=== PATIENT | male | born 1940 | race Caucasian/White ===

== ENCOUNTER → 2021-05-03 15:26 | Outpatient (CLI) | payer MEDICARE, OTHER, SELFPAY ==
[2021-05-03 17:03] LABS: Bacteria 0 SEEN /hpf (None Seen); Mucous, Urine 0 SEEN /hpf (<or=2+); Red Blood Cells-Urine 0 SEEN /hpf (0-5); Squamous Epithelial Cells - UA 0 SEEN /hpf (0-5); White Blood Cells 0 SEEN /hpf (0-5)
[2021-05-03 17:28] LABS: Color, Urine Straw (Yellow); Glucose, Dipstick Normal (Normal); Ketone-Dipstick Negative (Negative); Leukocyte Esterase-Dipstick Negative /ul (Negative); Nitrite-Dipstick Negative (Negative); Occult Blood-Urine 10 /ul (Negative); Protein-Dipstick Negative (Negative); Urine Bilirubin Dipstick Negative (Negative); Urine Clarity Clear (Clear); Urine Urobilinogen Normal (Normal)
[2021-05-03 18:13] LABS: PSA,Total - Annual Screen 5.32 ng/mL (0.00-4.00)
== END ==
PROVIDERS: PCP Family Medicine; Referring Provider Urology; Visit Provider Urology
DX: R31.29 Other microscopic hematuria (principal); Z12.5 Encounter for screening for malignant neoplasm of prostate
CPT/HCPCS: 36415; 81001; 84153; G0103

== ENCOUNTER → 2022-05-30 | Outpatient (CLI) | payer MEDICARE, OTHER, SELFPAY | END | disposition home or self-care (01) | LOC: LAB 09:43 | PROVIDERS: PCP Family Medicine; Visit Provider Registered Nurse | DX: Z12.5 Encounter for screening for malignant neoplasm of prostate (principal) | CPT/HCPCS: 36415; 84153; G0103 ==

== ENCOUNTER → 2023-06-12 | Outpatient (CLI) | payer MEDICARE, OTHER, SELFPAY ==
--- OUTSIDE RECORDS SUMMARY | 2023-06-12 08:58 | XMS RPT_ITS | CCD ---
Author Name Unknown Address [address] [place] [address] Organization [facility] Care Team Providers Care Display Fabricator Name Role Phone Sheri Kaur MD Primary Care Provider SHERI KAUR Primary Care Unavailable SAMANTHA TIM Referring Unavailable SHERI KAUR Primary Care Unavailable SAMANTHA TIM Attending Unavailable SHERI KAUR Primary Care Unavailable Allergies Allergy Classification Reported Allergen(s) Allergy Type Date of Onset Reaction(s) Facility (7 sources) Amoxicillin / Clavulanate; Translations: [AMOXICILLIN-POT CLAVULANATE] Drug Allergy 7 [facility] (7 sources) Sulfonamides (Antibiotic); Translations: [SULFA (SULFONAMIDE ANTIBIOTICS)] Propensity to adverse reactions 6 [facility] Work Phone: Medications Current Medications Medication Drug Class(es) Dates Sig (Normalized) Sig (Original) acetaminophen 325 mg / oxyCODONE hydrochloride 5 mg oral tablet (1 source) Opioid Agonist Start: 12-28-2021 End: 01-02-2022 take 1 tablet by mouth every six hours as needed oxyCODONE-acetamin ophen (PERCOCET) 5-325 mg tablet Indications: Unilateral inguinal hernia without obstruction or gangrene, recurrence not specified Take 1 tablet by mouth every 6 hours as needed for up to 5 days. 20 tablet 0 12/28/2021 01/02/2022 Active Completed/Discontinued Medications Medication Drug Class(es) Dates Sig (Normalized) Sig (Original) erythromycin base (ERYTHROMYCIN OPHTHALMIC) (6 sources) erythromycin bas e (ERYTHROMYCIN OPHTHALMIC) Use in eyes. 0 Active Problems Active Problems Problem Classification Problem Date Documented Da te Episodic/Chronic Abdominal hernia (3 sources) Inguinal hernia; Translations: [Unilateral inguinal hernia, without obstruction or gangrene, not specified as recurrent] Episodic Disorders of lipid metabolism (1 source) Hyperlipidemia, unspecified; Translations: [Dyslipidemia, goal LDL below 100] Onset: 05-18-2023 Chronic Immunizations and screening for infectious disease (1 source) Suspected disease caused by 2019-nCoV; Translations: [Suspected COVID-19 virus infection] Episodic Other aftercare (1 source) Follow-up status; Translations: [Encounter for other specified aftercare] Episodic Other nervous system disorders (6 sources) Neuropathy; Translations: [Polyneuropathy, unspecified] Onset: 07-26-2018 07-26-2018 Chronic Residual codes; unclassified (1 source) Contact with and (suspected) exposure to potentially hazardous body fluids; Translations: [Contact with potentially hazardous body fluids] Onset: 05-08-2023 Episodic Past or Other Problems Problem Classification Problem Date Documented Da te Episodic/Chronic Allergic reactions (6 sources) Solar degeneration; Translations: [Other skin changes due to chronic exposure to nonionizing radiation] Onset: 12-05-2011 12-05-2011 Episodic Other and unspecified benign neoplasm (6 sources) Senile angioma; Translations: [Hemangioma of skin and subcutaneous tissue] Onset: 12-05-2011 12-05-2011 Episodic Results Test Name Value Interpretation Reference Range Facil ity Vital Signs Date Time Vital Sign Value Performing Clinician Gallo giraldo 01-05-2022 13:52-0400 Body height 182.9 cm Elio Cunningham MD Work Phone: [facility] 01-05-2022 13:52-0400 Body temperature 97.9 [degF] Elio Cunningham MD Work Phone: [facility] 01-05-2022 13:52-0400 Body weight 70.31 kg Elio Cunningham MD Work Phone: [facility] 01-05-2022 13:52-0400 Diastolic blood pressure 68 mm[Hg] Elio Cunningham MD Work Phone: [facility] 01-05-2022 13:52-0400 Heart rate 65 /min Elio Cunningham MD Work Phone: [facility] 01-05-2022 13:52-0400 SaO2% (BldA) [Mass fraction] 100 % Elio Cunningham MD Work Phone: [facility] 01-05-2022 13:52-0400 Systolic blood pressure 136 mm[Hg] Elio Cunningham MD Work Phone: [facility] 12-28-2021 14:00-0400 Diastolic blood pressure 72 mm[Hg] Elio Cunningham MD Work Phone: [facility] 12-28-2021 14:00-0400 Heart rate 46 /min Elio Cunningham MD Work Phone: [facility] 12-28-2021 14:00-0400 Respiratory rate 14 /min Elio Cunningham MD Work Phone: [facility] 12-28-2021 14:00-0400 SaO2% (BldA) [Mass fraction] 99 % Elio Cunningham MD Work Phone: [facility] 12-28-2021 14:00-0400 Systolic blood pressure 155 mm[Hg] Elio Cunningham MD Work Phone: [facility] 12-28-2021 13:10-0400 Body temperature 96.8 [degF] Elio Cunningham MD Work Phone: [facility] 12-28-2021 10:19-0400 Body height 182.9 cm Elio Cunningham MD Work Phone: [facility] 12-28-2021 10:19-0400 Body weight 71.67 kg Elio Cunningham MD Work Phone: [facility] 12-13-2021 18:02-0400 Body temperature 98.8 [degF] Natalio Gee FRY COOK.LEADERSHIP DEVELOPMENT MANAGER Work Phone: [facility] 12-13-2021 18:02-0400 Body weight 71.85 kg Natalio Gee FRY COOK.LEADERSHIP DEVELOPMENT MANAGER Work Phone: [facility] 12-13-2021 18:02-0400 Diastolic blood pressure 72 mm[Hg] Natalio Gee FRY COOK.LEADERSHIP DEVELOPMENT MANAGER Work Phone: [facility] 12-13-2021 18:02-0400 Heart rate 68 /min Natalio Gee FRY COOK.LEADERSHIP DEVELOPMENT MANAGER Work Phone: [facility] 12-13-2021 18:02-0400 Respiratory rate 16 /min Natalio Gee FRY COOK.LEADERSHIP DEVELOPMENT MANAGER Work Phone: [facility] 12-13-2021 18:02-0400 SaO2% (BldA) [Mass fraction] 98 % Natalio Gee FRY COOK.LEADERSHIP DEVELOPMENT MANAGER Work Phone: [facility] 12-13-2021 18:02-0400 Systolic blood pressure 136 mm[Hg] Natalio Gee FRY COOK.LEADERSHIP DEVELOPMENT MANAGER Work Phone: [facility] 12-12-2021 13:42-0400 Body height 182.9 cm Elio Cunningham MD Work Phone: [facility] 12-12-2021 13:42-0400 Body temperature 98.91 [degF] Elio Cunningham MD Work Phone: [facility] 12-12-2021 13:42-0400 Body weight 71.67 kg Elio Cunningham MD Work Phone: [facility] 12-12-2021 13:42-0400 Diastolic blood pressure 68 mm[Hg] Elio Cunningham MD Work Phone: [facility] 12-12-2021 13:42-0400 Heart rate 85 /min Elio Cunningham MD Work Phone: [facility] 12-12-2021 13:42-0400 SaO2% (BldA) [Mass fraction] 99 % Elio Cunningham MD Work Phone: [facility] 12-12-2021 13:42-0400 Systolic blood pressure 142 mm[Hg] Elio Cunningham MD Work Phone: [facility] 11-29-2021 08:03-0400 Body temperature 97 [degF] Manny Schwartz FRY COOK.LEADERSHIP DEVELOPMENT MANAGER Work Phone: [facility] 11-29-2021 08:03-0400 Body weight 70.76 kg Manny Schwartz APRN.LEADERSHIP DEVELOPMENT MANAGER Work Phone: [facility] 11-29-2021 08:03-0400 Diastolic blood pressure 72 mm[Hg] Manny Schwartz FRY COOK.LEADERSHIP DEVELOPMENT MANAGER Work Phone: [facility] 11-29-2021 08:03-0400 Heart rate 60 /min Manny Schwartz FRY COOK.LEADERSHIP DEVELOPMENT MANAGER Work Phone: [facility] 11-29-2021 08:03-0400 Respiratory rate 14 /min Manny Schwartz FRY COOK.LEADERSHIP DEVELOPMENT MANAGER Work Phone: [facility] 11-29-2021 08:03-0400 Systolic blood pressure 118 mm[Hg] Manny Schwartz APRN.LEADERSHIP DEVELOPMENT MANAGER Work Phone: [facility] Encounters Encounter Date Encounter Type Care Provider Facility Start: 05-18-2023 End: 05-19-2023 ambulatory [facility] Facility:[facility] Start: 05-16-2023 End: 05-17-2023 [facility] Facility:[facility] Start: 05-16-2023 Patient encounter procedure SAMANTHA WOODNj [facility] Start: 05-08-2023 End: 05-09-2023 ambulatory [facility] Facility:[facility] Start: 03-11-2022 End: 03-11-2022 ambulatory [facility] Nurse Mayela Work Phone: [facility] [place] Procedures Date Procedure Procedure Detail Performing Clinician Start: 03-11-2022 [facility] COVI D-19 BIVALENT BOOSTER VACCINE, AGE 12+ YR Franky Cid DO Work Phone: Start: 03-11-2022 INFLUENZA SEASONAL QUADRIVALENT HIGH DOSE AGE 65+ Franky Cid DO Work Phone: Start: 11-29-2021 Adult depression scr eening assessment Manny Schwartz APRN.LEADERSHIP DEVELOPMENT MANAGER Work Phone: Plan of Treatment Date Care Activity Detail Author Start: 10-05-2025 Urine microalbumin profile DTAP,TDAP,TD (2 - Td or Tdap) [facility] Start: 01-12-2023 DIABETES SCREEN DIABETES SCREEN [facility] Start: 11-29-2022 Adult depression screening assessment DEPRESSION SCREENING [facility] Start: 01-19-2022 Influenza vaccination INFLUENZA (#1) [facility] Start: 05-21-2021 ADVANCE DIRECTIVE DISCUSSION ADVANCE DIRECTIVE DISCUSSION [facility] Start: 05-21-2021 DEPRESSION ASSESSMENT DEPRESSION ASSESSMENT [facility] SARS-CoV-2 (COVID-19 ) RNA [Presence] in Respiratory specimen by JAMES with probe detection 2019 CORONAVIRUS Microbiology Routine Suspected COVID-19 virus infection Ordered: 12/13/2021 [facility] Work Phone: Immunizations Immunization Date Immunization Notes Care Provider [facility] 03-11-2022 COVID-19 booster vaccine, age 12+ yr, bivalent (PFIZER-BIONTECH) Immunization [place] Work Phone: [facility] Work Phone: 03-11-2022 influenza, high-dose , quadrivalent vaccine (FLUZONE HIGH DOSE QUADRIVALENT) Immunization [place] Work Phone: [facility] 09-02-2021 COVID-19 vaccine, ag e 12+ yr (PFIZER-BIONTECH - DIAZ TOP) Manny Efren FRY COOK.LEADERSHIP DEVELOPMENT MANAGER Work Phone: [facility] 03-03-2021 COVID-19 vaccine, ag e 12+ yr (PFIZER-BIONTECH - PURPLE TOP) Manny Efren FRY COOK.LEADERSHIP DEVELOPMENT MANAGER Work Phone: [facility] 03-03-2021 influenza, high dose seasonal, preservative-free Manny Efren FRY COOK.LEADERSHIP DEVELOPMENT MANAGER Work Phone: [facility] 07-15-2020 COVID-19 vaccine, ag e 12+ yr (PFIZER-BIONTECH - PURPLE TOP) Manny Efren FRY COOK.LEADERSHIP DEVELOPMENT MANAGER Work Phone: [facility] 06-25-2020 COVID-19 vaccine, ag e 12+ yr (PFIZER-BIONTECH - PURPLE TOP) Manny Efren FRY COOK.LEADERSHIP DEVELOPMENT MANAGER Work Phone: [facility] 02-21-2020 influenza, high-dose , quadrivalent vaccine (FLUZONE HIGH DOSE QUADRIVALENT) Manny Efren FRY COOK.LEADERSHIP DEVELOPMENT MANAGER Work Phone: [facility] 03-14-2019 influenza, high dose seasonal, preservative-free Manny Efren FRY COOK.LEADERSHIP DEVELOPMENT MANAGER Work Phone: [facility] 01-30-2019 zoster vaccine recombinant Manny Efren FRY COOK.LEADERSHIP DEVELOPMENT MANAGER Work Phone: [facility] Work Phone: 07-26-2018 zoster vaccine recombinant Manny Efren FRY COOK.LEADERSHIP DEVELOPMENT MANAGER Work Phone: [facility] 03-21-2018 influenza, high dose seasonal, preservative-free Manny Efren FRY COOK.LEADERSHIP DEVELOPMENT MANAGER Work Phone: [facility] 10-06-2015 pneumococcal conjuga te vaccine, 13 valent Manny Efren FRY COOK.LEADERSHIP DEVELOPMENT MANAGER Work Phone: [facility] 10-06-2015 tetanus toxoid, redu maria luisa diphtheria toxoid, and acellular pertussis vaccine, adsorbed Manny Efren FRY COOK.LEADERSHIP DEVELOPMENT MANAGER Work Phone: [facility] 03-15-2013 influenza virus vaccine, unspecified formulation Manny Efren FRY COOK.LEADERSHIP DEVELOPMENT MANAGER Work Phone: [facility] Work Phone: 02-17-2012 influenza virus vaccine, unspecified formulation Manny Efren FRY COOK.LEADERSHIP DEVELOPMENT MANAGER Work Phone: [facility] 03-22-2011 influenza virus vaccine, unspecified formulation Manny Efren FRY COOK.LEADERSHIP DEVELOPMENT MANAGER Work Phone: [facility] Work Phone: 03-23-2009 influenza virus vaccine, unspecified formulation Manny Efren FRY COOK.LEADERSHIP DEVELOPMENT MANAGER Work Phone: [facility] 08-03-2008 zoster vaccine, live Manny C ecil FRY COOK.LEADERSHIP DEVELOPMENT MANAGER Work Phone: [facility] Work Phone: 07-03-2008 pneumococcal polysaccharide vaccine, 23 valent Manny Efren FRY COOK.LEADERSHIP DEVELOPMENT MANAGER Work Phone: [facility] Work Phone: 01-15-2004 tetanus and diphther ia toxoids, adsorbed, preservative free, for adult use (2 Lf of tetanus toxoid and 2 Lf of diphtheria toxoid) Manny Schwartz APRN.[facility] Work Phone: [facility] Work Phone: Payers Date Payer Category Payer Private Health Insurance [facility] SUPPLE[facility] [id number] 2021-Present [phone] [address] [place] [address] Indemnity [id number] 2021 Private Health Insurance [facility] SUPPLEMENT [id number] 2021-Present [phone] [address] [place] [address] Indemnity [id number] 2021 Private Health Insurance [id number] 2007 Medicare MEDICARE MEDICAR E A AND B [id number] 2007-Present [phone] [place] [address] Medicare [id number] 2007 Medicare MEDICARE MEDICAR E A AND B [id number] 2007-Present [phone] [place] [address] Medicare [id number] 2007 Medicare [id number] Social History Date Type Detail Facility [facility]: [facility] Start: 11-29-2021 End: 01-26-2022 Alcohol intake Current drinker of alcohol (finding) [facility] Start: 11-29-2021 End: 01-26-2022 Alcohol intake [facility] Start: 04-13-2020 History SDOH Alcohol Frequency 5 [facility] Start: 04-13-2020 End: 11-29-2020 History SDOH Alcohol Std Drinks 1 [facility] Start: 04-13-2020 History SDOH Social Connections Phone 4 [facility] Start: 04-13-2020 End: 11-29-2020 History SDOH Social Connections Get Together 2 [facility] Start: 04-13-2020 History SDOH Social Connections Meetings 3 [facility] Start: 04-13-2020 Education 19 [facility] Start: 1940 Sex Assigned At Not on file C [facility] Start: 11-19-2021 End: 01-05-2022 Exposure to SARS-CoV-2 (event) Not sure [facility] Start: 04-06-2011 Tobacco use and exposure Smoke less tobacco non-user [facility] Work Phone: Start: 12-18-2021 End: 12-28-2021 Exposure to SARS-CoV-2 (event) Yes [facility] Medical Equipment Procedure Code Equipment Code Equipment Origin al Text Equipment Identifier Dates Mesh Progrip Chase Pet [id number] Surgical Self Fixate Flat Sheet Hernia Sterile - [id number] Start: 12-28-2021 Clinical Notes 04-11-2013 to 05-16-2023 Elio Cunningham MD - 01/05/2022 2:14 PM EDT Note Date & Type Note Facility 05-16-2023 Note HNO ID: [id number] Author: Samantha Tim APRN.LEADERSHIP DEVELOPMENT MANAGER Service: ? Author Type: Nurse Practitioner Type: Progress Notes Filed: 05/16/2023 9:34 AM Note Text: Yani Ngo is a 82 year old male here for a Medicare wellness visit. Medicare Health Risk Assessment General Health Very good Exercise: Minutes/Day 60 min Exercise: Days/Week 6 days Alcohol: Daily Use 2-3 times a week Alcohol: Drinks/Day 1 or 2 Alcohol: 6 or more drinks Never Feel off balance No Concerns: Teeth/Dentures No Concerns: Sexual function No Troubled by feelings None of the above Frequency: Eating healthy diet Nearly every day ADLs requiring help None of the above Safety precautions in home/vehicle Yes Smoke, vape, chews tobacco No Difficulty hearing Yes, I wear a hearing aid Difficulty seeing No Current Providers Specialists: I have reviewed specialist-related care of the patient in the medical record. Dr. Irizarry (Urology) Medical/Family history review Reviewed and updated problem list, medical/surgical/family/social history, medications, and allergies. Opioid use review Opioid Medications (last 90 days) Some values may be hidden. Unless noted otherwise, only the newest values recorded on each date are displayed. Opioid Medications No data to display. Depression screening Depression Screening PHQ-2 Score PHQ-9 Score SANTA-2 Total Score 05/15/2023 0 1 - Depression screening tool completed and reviewed. Based on score and interview, patient is not at risk for depression. Screening tool discussed with patient, and I recommended no further intervention at this time. Cognitive screening Mini Cog Score: 5 Cognitive screening reviewed and no further action needed (score 3-5) Functional Observation Was the patient's timed Up AND Go test unsteady or ? 12 seconds? No Advance Care Planning Surrogate decision maker and/or advance care plan documented Measurements BP 140/60 Pulse 95 Resp 16 Ht 6' .008 (1.83m) Wt 164 lb (74.4kg) SpO2 95% BMI 22.24 kg/(m2). Additional screenings: No results found. Assessment/Plan Medicare annual wellness visit, subsequent (Z) - Counseled on healthy diet and regular exercise - Fall avoidance information provided - Personalized prevention plan provided ASSESSMENT/PLAN: 1. Medicare annual wellness visit, subsequent - ICD9: V70.0, ICD10: Z00.00 (primary diagnosis) - Counseled on healthy diet and regular exercise - Depression screening tool completed and reviewed with patient. Based on score and interview, patient is not at risk for depression and recommended no further intervention at this time. - Follow up for annual exam in one year 2. Dyslipidemia, goal LDL below 100 - ICD9: 272.4, ICD10: E78.5 - Control undetermined, due for labs - Counseled on healthy diet and regular exercise - LIPID PANEL BASIC - COMP METABOLIC PANEL Follow-up in 1 year or sooner as needed. Discussed treatment plan and patient voices understanding. Patient's questions answered appropriately. Medications and potential side effects were discussed and patient voices understanding. This note was partially generated using [employer] recognition system. Note was reviewed for accuracy. There may be minor misspellings or grammar miscues with Dragon voice recognition. [facility] 01-05-2022 History of Present illness Narrative Subjective: Patient is status post laparoscopic right inguinal hernia repair completed at [place] on 12/28/2021. Patient has had no difficulty postoperatively other than having some constipation. Objective:Blood pressure 136/68, pulse 65, temperature 36.6 C (97.9 F), height 182.9 cm (6'), weight 70.3 kg (155 lb), SpO2 100 %. Incisions on the abdomen are healing quite nicely there is no signs of any infections. Has a small hematoma in the right groin area but there is no bruising in the penis and scrotal areas and there is no signs of infection. Assessment: Aftercare Plan: 1 him to gradually increase his activities. He will follow back up with me probably in another year and a half so that we can do another screening colonoscopy. documented in this encounter [facility] 12-28-2021 Note HNO ID: [id number] Author: Sherry Oneill APRN.LEASE ADMINISTRATION SUPERVISOR Service: ? Author Type: Nurse Patcher Type: Anesthesia Procedure Notes Filed: 12/28/2021 12:30 PM Note Text: ANESTHESIOLOGY PROCEDURE NOTE Airway General Information Procedure Start Time/Medication Administration: 12/28/2021 12:14 PM Patient location during procedure: OR Timeout Performed Pre-procedure: timeout performed Consent Obtained: Yes Patient identity confirmed: arm band, care project manager/team coach and patient Staffing LEASE ADMINISTRATION SUPERVISOR: Sherry Oneill APRN.LEASE ADMINISTRATION SUPERVISOR Performed by: EUGENIE Indications and Patient Condition Indications for airway management: anesthesia Preoxygenated: yes anesthesia circuit Patient position: sniffing Method: asleep Difficult Mask: No Final Airway Details Final airway type: endotracheal airway Final Endotracheal Airway: ETT Cuffed: yes Successful intubation technique: direct laryngoscopy Devices used: intubating stylet Endotracheal tube insertion site: oral Blade: Chris Blade size: #4 ETT size (mm): 7.5 Measured from: lips Measurement (cm): 22 Placement verified by: capnometry Cormack-Lehane Classification: grade IIa - partial view of glottis Number of attempts at approach: 1 Airway not difficult SIGNATURE: Sherry Oneill APRN.CRNA PATIENT NAME: Yani Ngo DATE: December 28, 2021 TIME: 12:28 PM CSN: [id number] [facility] documented as of this encounter (statuses as of 12/29/2021) [facility] History of Past illness Narrative* Problem Noted Date Resolved Date Unilateral inguinal hernia without obstruction o r gangrene 12/28/2021 12/28/2021 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 08/31/2014 Postinflammatory skin changes 03/12/2013 Xerosis cutis 08/24/2012 08/31/2014 Pyoderma, unspecified 02/06/2012 08/31/2014 Boil of neck 02/06/2012 08/31/2014 Actinic Keratoses: Premalignant AK's 12/05/2011 08/31/2014 Seborrheic Keratoses 12/05/2011 08/31/2014 Solar Lentigines 12/05/2011 08/31/2014 Cryosurgical Scars 12/05/2011 08/31/2014 Epidermal cyst 12/05/2011 08/31/2014 Elbow swelling 04/02/2011 08/31/2014 Actinic keratosis 08/31/2006 09/09/2010 EPIDERMAL CYST///SEBACEOUS CYST 08/31/2006 09/09/2010 Normal cardiac stress test 09/09 Overview: approx 2006 documented as of this encounter (statuses as of 01/05/2022) [facility] History of Past illness Narrative* Problem Noted Date Resolved Date Unilateral inguinal hernia without obstruction o r gangrene 12/28/2021 12/28/2021 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 08/31/2014 Postinflammatory skin changes 03/12/2013 Xerosis cutis 08/24/2012 08/31/2014 Pyoderma, unspecified 02/06/2012 08/31/2014 Boil of neck 02/06/2012 08/31/2014 Actinic Keratoses: Premalignant AK's 12/05/2011 08/31/2014 Seborrheic Keratoses 12/05/2011 08/31/2014 Solar Lentigines 12/05/2011 08/31/2014 Cryosurgical Scars 12/05/2011 08/31/2014 Epidermal cyst 12/05/2011 08/31/2014 Elbow swelling 04/02/2011 08/31/2014 Actinic keratosis 08/31/2006 09/09/2010 EPIDERMAL CYST///SEBACEOUS CYST 08/31/2006 09/09/2010 Normal cardiac stress test 09/09 Overview: approx 2006 documented as of this encounter (statuses as of 03/11/2022) [facility] Miscellaneous Notes* Operative Report - Elio Cunningham MD - 12/28/2021 12:05 PM EDT OPERATIVE/PROCEDURE REPORT LOG ID: [id number] SURGERY/PROCEDURE DATE: 12/28/2021 INCISION/PROCEDURE START TIME: 12:26 PM INCISION CLOSE/PROCEDURE END TIME: 1:03 PM SURGEON(S)/PROCEDURALIST(S) AND DATABASE MODELER(S): Surgeon(s) and Role: * Elio Cunningham MD - Primary Physician Tile Erector: Therese Quintanilla PA-C SURGERY/PROCEDURE(S): Laparoscopic right inguinal hernia repair with mesh ANESTHESIA: General SURGERY/PROCEDURE DETAILS: Patient was brought into the operating room. Placed in the supine position. Under excellent general anesthetic the abdomen was sterilely prepped and draped in the usual fashion. Local was injected supraumbilically. Incision was made dissection was carried down to the fascia fascia was grasped with a Praveena. Varies needle was placed inside the abdomen. The abdomen was insufflated to 15 torr. A 10/12 trocar was placed without difficulty. This was flank by 2 #5 trochars both placed under direct visualization and without injury to underlying structures. Patient was placed in the headdown and rotated to the left position. I scored the peritoneum on the right dissecting down to the pubic tubercle then dissecting laterally to Biju's ligament then dissecting a rather large indirect inguinal hernia off of the cord and vessel structures. I then dissected further laterally. I had excellent hemostasis once this was completed I fashioned a 15 x 10 ProGrip mesh into the wound it laid completely flat. I reperitonealized the area with a pro tacker covering the mesh completely. An ilioinguinal nerve block was performed. The trochars were removed under direct visualization good my stasis was noted. The fascia the umbilical port was closed with a [id number] stitch of 0 Vicryl. Skin incisions were closed with subcuticular stitches of 4-0 Monocryl. Steri-Strips were applied sterile dressings were applied and the patient tolerated the procedure well. I did inspect the left side no signs of any hernia were identified. Therese Quintanilla PA-C was my title assistant. She assisted with retraction, visualization and performed skin closure. No additional surgeons or qualified residents were available. PRE-OP/PRE-PROCEDURE DIAGNOSIS: Right inguinal hernia POST-OP/POST-PROCEDURE DIAGNOSIS: Same as Preop ESTIMATED BLOOD LOSS: < 15 mls SPECIMENS: None IMPLANTABLE DEVICES: 15 x 10 ProGrip mesh DRAINS: None COMPLICATIONS: None PARTICIPATION IN SURGERY/PROCEDURE: I/primary surgeon/proceduralist performed the procedure with assistance. SIGNATURE: Elio Cunningham III, MD PATIENT NAME: Yani Ngo DATE: December 28, 2021 TIME: 1:08 PM documented in this encounter[facility] History and physical note * Elio Cunningham MD - 12/28/2021 10:35 AM EDT Images from the original note were not included. HISTORY AND PHYSICAL Yani Ngo 1940 REFERRING PHYSICIAN: Manny Schwartz APRN.LEADERSHIP DEVELOPMENT MANAGER CHIEF COMPLAINT: Consult (Right Inguinal Hernia) HPI: Yani is a 81 year old male with a complaint of a bulge and discomfort in his right inguinal region. The patient notes discomfort in this area with lifting and straining. The symptoms have maintained, over the past few months. The patient notes no symptoms of bowel obstruction and denies nausea or vomiting. The patient was seen by his primary care physician who felt the patient has a hernia. Yani was referred for evaluation and treatment. The patient is being seen by me today at the request of Dr. Schwartz for my opinion and advice regarding Unilateral inguinal hernia without obstruction or gangrene, recurrence not specified. PAST MEDICAL HISTORY PAST MEDICAL HISTORY Diagnosis Date NEGATIVE MEDICAL HISTORY Normal cardiac stress test approx 2006 PAST SURGICAL HISTORY PAST SURGICAL HISTORY Procedure Laterality Date CATARACT SURGERY, COMPLEX 03/2013 removed from left eye-Dr. Gold COLONOSCOPY FLX DX W/COLLJ SPEC WHEN PFRMD 06/24/12 PAST SURGICAL HISTORY OF benign cyt removed from right arm as child TONSILLECTOMY & ADENOIDECTOMY <AGE 14 VASECTOMY UNI/BI SPX W/POSTOP SEMEN EXAMS 1979 CURRENT MEDICATIONS Current Outpatient Medications Medication Sig erythromycin base (ERYTHROMYCIN OPHTHALMIC) Use in eyes. MULTI-VITAMIN ORAL Take by mouth once daily. valACYclovir (VALTREX) 1 gram tab Take 2 tablets by mouth twice daily. At onset of cold sores multivitamin ORAL tablet Take 1 tablet by mouth once daily. No current facility-administered medications for this visit. ALLERGIES: Augmentin [Amoxicillin-Pot Clavulanate] and Sulfa (Sulfonamide Antibiotics) PERSONAL HISTORY: SOCIAL HISTORY Social History Tobacco Use Smoking status: Never Smoker Smokeless tobacco: Never Used Substance Use Topics Alcohol use: Yes Alcohol/week: 22.5 standard drinks Types: 7 Glasses of Wine (5oz), 2 Mixed Drinks per week Comment: occasional Drug use: No FAMILY HISTORY: FAMILY HISTORY FAMILY HISTORY Problem Relation Age of Onset other (ovarian cancer) Mother Cancer Father colon cancer other (kidney disease) Father Diabetes Paternal Grandfather REVIEW OF SYMPTOMS: The review of systems data was entered by the nurse and reviewed by pr Nursing Notes: Sherry Parham 12/12/2021 1:44 PM Signed REVIEW OF SYSTEMS: General: The patient denies fatigue, denies weight loss, denies weight gain, denies feeling hot, and denies feelings of cold. Eyes: The patient denies glaucoma, denies eye injury/surgery, does not wear glasses or contacts. Ear/Nose/Throat: The patient denies allergies, denies hayfever, denies ear infections, and denies bloody noses. Cardiovascular: The patient denies chest pain, denies heart disease, denies high blood pressure,denies cardiac stent, denies prior heart attack, denies irregular heart beat, denies high cholesterol, denies poor circulation, denies heart failure, other cardiac issues, denies claudication, denies cold feet, denies peripheral arterial stent. Respiratory: The patient denies tuberculosis, denies pneumonia, denies frequent cough, denies pulmonary embolism, denies shortness of breath, and denies coughing up blood. Gastrointestinal: The patient denies difficulty swallowing, denies acid reflux, denies ulcers, denies vomiting, denies jaundice/hepatitis, denies gallbladder problems, denies black or tarry stools, denies hemorrhoids, denies bleeding from rectum, denies diverticulitis, denies constipation, denies diarrhea, denies loss of stool control, and NOTES hernias. Kidney/Bladder: The patient denies kidney stones, denies urine infections, and denies bloody urine. Skin: The patient denies a history of skin cancer, denies bleeding/changing moles, and denies a history of skin rash. Neurologic: The patient denies a history of epilepsy/convulsions, denies headaches, denies head/spinal injuries, and denies stroke/TIA. Psychiatric: The patient denies psychiatric medications, denies depression, and denies voices, denies substance abuse. Endocrine: The patient denies thyroid disorders, denies diabetes, and denies hormonal problems. Hematologic: The patient denies a history of bruising, denies bleeding, and denies anemia, denies blood clots. Infections: The patient denies a history of measles and mumps, denies rheumatic fever, and denies sexually transmitted diseases. Musculoskeletal: The patient denies back pain/injury, denies back problems, denies sciatica, deniesknee/foot trouble, denies arthritis, or denies gout. When was patient's last Mammogram screening? N/A Last Colonoscopy: 06/17/2012 Sherry Parham PHYSICAL EXAMINATION: General: The patient is 81 year old male, well nourished, well hydrated in no acute distress. The patient is oriented to time, place, and person. VITALS: Blood pressure 142/68, pulse 85, temperature 37.2 C (98.9 F), height 182.9 cm (6'), weight 71.7 kg (158 lb), SpO2 99 %. Body mass index is 21.43 kg/m . HEENT: Normal cephalic, ataumatic, pupils are equally round, sclera are anicteric, mucous membranesare moist, oropharynx is clear. Neck has no masses, asymmetry or lymphadenopathy. Thyroid is unremarkable. Respiratory: Clear to auscultation and percussion. Normal respiratory excursion and pattern. Cardiac: Examination is regular rate and rhythm. Abdominal exam: Soft, nontender, with no palpable masses. No hepatosplenomegaly. A moderate reducible right inguinal hernia, no left inguinal or umbilical hernias are noted Rectal exam: exam deferred Extremities: no clubbing, cyanosis or edema. No adenopathy. Other: LABORATORY VALUES: As Noted RADIOLOGIC STUDIES: As Noted Assessment IMPRESSION: right inguinal hernia PLAN: My plan is to perform a laparoscopic right inguinal hernia repair with mesh. The planned surgical procedure was discussed extensively with the patient. The risks, benefits, anticipated outcomesand possible complications were mentioned. Yani araizaands that all hernia repair surgery has a chance of recurrence and/or chronic post operative pain. My staff has also explained the procedure inunderstandable terms and the patient was given the option to take printed material concerning the planned procedure. The patient had the opportunity to ask questions concerning the planned procedure.The patient freely consents to the planned procedure. My findings have been communicated to Dr. Schwartz via shared medical record. This note will be forwarded to Dr. Sheri Kaur MD. Diagnoses: (K40.90) Unilateral inguinal hernia without obstruction or gangrene, recurrence not specified Anticipated CPT Code: laparoscopic right inguinal hernia repair with mesh - 89967-633 Anticipated Anesthetic: General Patient weight: Blood pressure 142/68, pulse 85, temperature 37.2 C (98.9 F), height 182.9 cm (6'),weight 71.7 kg (158 lb), SpO2 99 %. BMI: Body mass index is 21.43 kg/m . 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 COVID (Procedure Consent) Procedure Criteria Procedure Criteria: Yes Elective The surgeon/proceduralist and patient have discussed in detail therisk of exposure to and/or potential harm posed by the COVID-19 virus with having a surgery/procedure at this time versus the risk of delaying the surgery/procedure. It is not possible to know eitherthe risk of delaying the surgery or procedure or chance of getting an infection with perfect accuracy, but a joint decision was made between the patient and the surgeon/proceduralist to proceed at this time with the scheduled surgery/procedure as indicated on the consent form. Elio Cunningham III, MD UPDATED HISTORY AND PHYSICAL EXAMINATION SERVICE DATE: 12/28/2021 SERVICE TIME: 10:36 AM PHYSICAL EXAM MUST BE COMPLETED ON ADMISSION The History and Physical (completed in the past 30 days) has been reviewed and the patient has beenexamined. The contents accurately reflect the patient's condition with the following additions or revisions since the H&P was completed. Examination indicates no changes. This H&P can be found in the attached. SIGNATURE: Elio Cunningham III, MD PATIENT NAME: Yani Ngo DATE: December 28, 2021 TIME: 10:36 AM documented in this encounter[facility]07-26-2022 Instructions* Patient Instructions* Natalio Gee APRN.LEADERSHIP DEVELOPMENT MANAGER - 12/13/2021 6:17 PM EDT How to Manage Common Symptoms Associated with COVID for Adults Fever- Fever is a temperature over 100.4 F and can occur when the body is fighting an infection. Tohelp treat a fever: Drink plenty of fluids and stay well hydrated. Eat small amounts of easy to digest food. Rest. Your body needs rest to recover, but getting up and moving around the house frequently is a good idea. You should try to continue doing your normal daily activities (bathing, toileting, grooming, cooking), though you will probably feel tired, and need to rest often. Avoid any heavy activity or exercise, as this will increase your body temperature. Dress in light clothing and stay covered in a light sheet. Keep the room temperature cool. Take a slightly warm (not cold or cool) bath, or apply damp washcloths to the forehead and wrists. Cough- Cough is a common symptom associated with COVID and can be bothersome. To help treat a cough: Stay well hydrated. Try warm water or tea with lemon and/or honey to help soothe the cough. Use a humidifier to add moisture to the air. Try a product with menthol, like a cough drop or a rub for your chest such as Vicks, which can helpreduce cough. Try cough drops. Avoid smoking and other strong odors or perfumes. Try breathing exercises to keep your lungs open and clear. Take a big deep breath through your noseand hold for 5 seconds before slowly releasing. Repeat frequently, while you are awake. Congestion- Runny nose or nasal congestion can occur with COVID. Treatment can help relieve symptoms: Try OTC nasal saline spray, or nasal saline rinse to relieve mucus congestion. Nasal strips can help keep nasal passages open, to increase airflow. Elevating your head with an extra pillow in bed can help reduce congestion. Using a humidifier can increase moisture in the air, and make breathing easier. Sore Throat- Another common symptom with COVID, can be managed at home by: Stay well hydrated. Gargle with salt water mix teaspoon salt with 1 cup of warm water and gargle. This helps to loosen mucus in the back of the throat and may reduce discomfort. Try ice chips, popsicles or lozenges to soothe the throat. Nausea/Vomiting/Diarrhea- These are common symptoms, and staying hydrated is most important. If you are nauseous or vomiting, start with small sips of water every 10-15 minutes and increase astolerated. You can try sucking an ice cube too. If tolerating, you can try pedialyte or Gatorade, or flat sprite or teresa-shira. Start slowly and increase as you are able to. Instead of meals, try smaller, more frequent snacks. Try eating bland foods like crackers, toast, rice, and applesauce. Avoid spicy, greasy or fried foods and dairy containing foods. Even if you aren't feeling hungry due to lack of smell or taste, it is important to try to take in some food when you are able. After drinking and eating, rest in an upright position for up to two hours as needed to help decrease nauseous feelings. Try closing your eyes, avoid moving and watching TV. Avoid strong odors that can make you feel more nauseated. When to seek emergency medical attention Look for emergency warning signs for COVID-19. If having any of these symptoms, seek emergency medical care immediately: Trouble breathing Persistent pain or pressure in the chest New confusion Inability to wake or stay awake Bluish lips or face *This list is not all possible symptoms. Please call your medical provider for any other symptoms that are severe or concerning to you. documented in this encounterU[facility]07-26-2022 History of Present illness Narrative* Natalio Gee APRN.CNP - 12/13/2021 6:08 PM EDT Subjective HPI Nontoxic-appearing male presents urgent care chief complaint positive COVID-19 home test. States hetook a positive home test today due to fatigue. Duration of symptoms 1 day. Associated symptoms cough runny nose fatigue. Patient states overall he feels fine just a little more tired than normal. States he is vaccinated against COVID-19. Did receive 2 boosters. No known sick contacts. No OTC medication use today. Denies any fever productive cough chest pain shortness of breath pleuritic pain hemoptysis nausea vomiting abdominal pain change in bowel or bladder habits. Past medical history prescription medication use allergies reviewed. .Patient presents with: Cough: cough, runny nose and fatigue x 1 day-positive COVID at home PAST MEDICAL HISTORY Diagnosis Date NEGATIVE MEDICAL HISTORY Normal cardiac stress test approx 2005 PAST SURGICAL HISTORY Procedure Laterality Date CATARACT SURGERY, COMPLEX 03/2013 removed from left eye-Dr. Gold COLONOSCOPY FLX DX W/COLLJ SPEC WHEN PFRMD 06/24/12 PAST SURGICAL HISTORY OF benign cyt removed from right arm as child TONSILLECTOMY & ADENOIDECTOMY <AGE 14 VASECTOMY UNI/BI SPX W/POSTOP SEMEN EXAMS 1979 ALLERGIES Augmentin [Amoxicillin-Pot Clavulanate] and Sulfa (Sulfonamide Antibiotics) MEDICATIONS erythromycin base (ERYTHROMYCIN OPHTHALMIC) Use in eyes. MULTI-VITAMIN ORAL Take by mouth once daily. valACYclovir (VALTREX) 1 gram tab Take 2 tablets by mouth twice daily. At onset of cold sores multivitamin ORAL tablet Take 1 tablet by mouth once daily. FAMILY HISTORY Problem Relation Age of Onset other (ovarian cancer) Mother Cancer Father colon cancer other (kidney disease) Father Diabetes Paternal Grandfather Social History Tobacco Use Smoking status: Never Smoker Smokeless tobacco: Never Used Substance Use Topics Alcohol use: Yes Alcohol/week: 22.5 standard drinks Types: 7 Glasses of Wine (5oz), 2 Mixed Drinks per week Comment: occasional Drug use: No BP 136/72 Pulse 68 Temp 37.1 C (98.8 F) (Tympanic) Resp 16 Wt 71.8 kg (158 lb 6.4 oz) SpO2 98% BMI 21.48 kg/m Review of Systems Constitutional: Positive for malaise/fatigue. Negative for chills and fever. HENT: Positive for congestion. Negative for ear discharge, ear pain, sinus pain and sore throat. Eyes: Negative for blurred vision, pain, discharge and redness. Respiratory: Positive for cough. Negative for hemoptysis, sputum production, shortness of breath, wheezing and stridor. Cardiovascular: Negative for chest pain. Gastrointestinal: Negative for abdominal pain, diarrhea, nausea and vomiting. Musculoskeletal: Positive for myalgias. Skin: Negative for itching and rash. Neurological: Negative for dizziness and headaches. Objective Physical Exam Constitutional: General: He is not in acute distress. Appearance: He is not diaphoretic. HENT: Head: Normocephalic. Nose: Congestion present. Eyes: Conjunctiva/sclera: Conjunctivae normal. Pupils: Pupils are equal, round, and reactive to light. Cardiovascular: Rate and Rhythm: Normal rate and regular rhythm. Heart sounds: Normal heart sounds. Pulmonary: Effort: Pulmonary effort is normal. No tachypnea, accessory muscle usage or respiratory distress. Breath sounds: Normal breath sounds. No stridor. Abdominal: Palpations: Abdomen is soft. Tenderness: There is no abdominal tenderness. Musculoskeletal: Cervical back: Normal range of motion and neck supple. No rigidity or tenderness. Lymphadenopathy: Cervical: No cervical adenopathy. Skin: General: Skin is warm and dry. Neurological: Mental Status: He is alert and oriented to person, place, and time. ASSESSMENT/PLAN: 1. Suspected COVID-19 virus infection - ICD9: V01.79, ICD10: Z20.822 - 2019 CORONAVIRUS Positive COVID home test. We discussed antiviral versus monoclonal antibody. Patient states would like to discuss treatment options with PCP. Appointment made for tomorrow with PCP office. If PCR test is positive will switch to virtual visit. Patient was educated on supportive therapies. Patient was instructed to immediately proceed to emergency room for any new, worsening, or symptoms lasting longer than anticipated. The patient's clinical presentation is otherwise unremarkable at this time. Based on exam and clinical finding, the patient is stable for discharge. Plan of care was discussed with patient. Patient verbalizes understanding and agrees to plan of care. This note was generated using [employer] software. It may contain errors in wording, punctuation, or spelling. Natalio Gee APRN.MARQUIS documented in this encounterU[facility] Center07-25-2022 History of Present illness Narrative* Elio Cunningham MD - 12/12/2021 2:37 PM EDT HISTORY AND PHYSICAL Yani Ngo 1940 REFERRING PHYSICIAN: Manny Schwartz APRN.CNP CHIEF COMPLAINT: Consult (Right Inguinal Hernia) HPI: Yani is a 81 year old male with a complaint of a bulge and discomfort in his right inguinal region. The patient notes discomfort in this area with lifting and straining. The symptoms have maintained, over the past few months. The patient notes no symptoms of bowel obstruction and denies nausea or vomiting. The patient was seen by his primary care physician who felt the patient has a hernia. Yani was referred for evaluation and treatment. The patient is being seen by me today at the request of Dr. Schwartz for my opinion and advice regarding Unilateral inguinal hernia without obstruction or gangrene, recurrence not specified. PAST MEDICAL HISTORY Diagnosis Date NEGATIVE MEDICAL HISTORY Normal cardiac stress test approx 2005 PAST SURGICAL HISTORY Procedure Laterality Date CATARACT SURGERY, COMPLEX 03/2013 removed from left eye-Dr. Gold COLONOSCOPY FLX DX W/COLLJ SPEC WHEN PFRMD 06/24/12 PAST SURGICAL HISTORY OF benign cyt removed from right arm as child TONSILLECTOMY & ADENOIDECTOMY <AGE 14 VASECTOMY UNI/BI SPX W/POSTOP SEMEN EXAMS 1979 Current Outpatient Medications Medication Sig erythromycin base (ERYTHROMYCIN OPHTHALMIC) Use in eyes. MULTI-VITAMIN ORAL Take by mouth once daily. valACYclovir (VALTREX) 1 gram tab Take 2 tablets by mouth twice daily. At onset of cold sores multivitamin ORAL tablet Take 1 tablet by mouth once daily. No current facility-administered medications for this visit. ALLERGIES: Augmentin [Amoxicillin-Pot Clavulanate] and Sulfa (Sulfonamide Antibiotics) PERSONAL HISTORY: Social History Tobacco Use Smoking status: Never Smoker Smokeless tobacco: Never Used Substance Use Topics Alcohol use: Yes Alcohol/week: 22.5 standard drinks Types: 7 Glasses of Wine (5oz), 2 Mixed Drinks per week Comment: occasional Drug use: No FAMILY HISTORY: FAMILY HISTORY Problem Relation Age of Onset other (ovarian cancer) Mother Cancer Father colon cancer other (kidney disease) Father Diabetes Paternal Grandfather REVIEW OF SYMPTOMS: The review of systems data was entered by the nurse and reviewed by me Nursing Notes: Sherry Parham 12/12/2021 1:44 PM Signed REVIEW OF SYSTEMS: General: The patient denies fatigue, denies weight loss, denies weight gain, denies feeling hot, and denies feelings of cold. Eyes: The patient denies glaucoma, denies eye injury/surgery, does not wear glasses or contacts. Ear/Nose/Throat: The patient denies allergies, denies hayfever, denies ear infections, and denies bloody noses. Cardiovascular: The patient denies chest pain, denies heart disease, denies high blood pressure,denies cardiac stent, denies prior heart attack, denies irregular heart beat, denies high cholesterol, denies poor circulation, denies heart failure, other cardiac issues, denies claudication, denies cold feet, denies peripheral arterial stent. Respiratory: The patient denies tuberculosis, denies pneumonia, denies frequent cough, denies pulmonary embolism, denies shortness of breath, and denies coughing up blood. Gastrointestinal: The patient denies difficulty swallowing, denies acid reflux, denies ulcers, denies vomiting, denies jaundice/hepatitis, denies gallbladder problems, denies black or tarry stools, denies hemorrhoids, denies bleeding from rectum, denies diverticulitis, denies constipation, denies diarrhea, denies loss of stool control, and NOTES hernias. Kidney/Bladder: The patient denies kidney stones, denies urine infections, and denies bloody urine. Skin: The patient denies a history of skin cancer, denies bleeding/changing moles, and denies a history of skin rash. Neurologic: The patient denies a history of epilepsy/convulsions, denies headaches, denies head/spinal injuries, and denies stroke/TIA. Psychiatric: The patient denies psychiatric medications, denies depression, and denies voices, denies substance abuse. Endocrine: The patient denies thyroid disorders, denies diabetes, and denies hormonal problems. Hematologic: The patient denies a history of bruising, denies bleeding, and denies anemia, denies blood clots. Infections: The patient denies a history of measles and mumps, denies rheumatic fever, and denies sexually transmitted diseases. Musculoskeletal: The patient denies back pain/injury, denies back problems, denies sciatica, deniesknee/foot trouble, denies arthritis, or denies gout. When was patient's last Mammogram screening? N/A Last Colonoscopy: 06/17/2012 Sherry Parham PHYSICAL EXAMINATION: General: The patient is 81 year old male, well nourished, well hydrated in no acute distress. The patient is oriented to time, place, and person. VITALS: Blood pressure 142/68, pulse 85, temperature 37.2 C (98.9 F), height 182.9 cm (6'), weight 71.7 kg (158 lb), SpO2 99 %. Body mass index is 21.43 kg/m . HEENT: Normal cephalic, ataumatic, pupils are equally round, sclera are anicteric, mucous membranesare moist, oropharynx is clear. Neck has no masses, asymmetry or lymphadenopathy. Thyroid is unremarkable. Respiratory: Clear to auscultation and percussion. Normal respiratory excursion and pattern. Cardiac: Examination is regular rate and rhythm. Abdominal exam: Soft, nontender, with no palpable masses. No hepatosplenomegaly. A moderate reducible right inguinal hernia, no left inguinal or umbilical hernias are noted Rectal exam: exam deferred Extremities: no clubbing, cyanosis or edema. No adenopathy. Other: LABORATORY VALUES: As Noted RADIOLOGIC STUDIES: As Noted Assessment IMPRESSION: right inguinal hernia PLAN: My plan is to perform a laparoscopic right inguinal hernia repair with mesh. The planned surgical procedure was discussed extensively with the patient. The risks, benefits, anticipated outcomesand possible complications were mentioned. Yani araizaands that all hernia repair surgery has a chance of recurrence and/or chronic post operative pain. My staff has also explained the procedure inunderstandable terms and the patient was given the option to take printed material concerning the planned procedure. The patient had the opportunity to ask questions concerning the planned procedure.The patient freely consents to the planned procedure. My findings have been communicated to Dr. Schwartz via shared medical record. This note will be forwarded to Dr. Sheri Kaur MD. Diagnoses: (K40.90) Unilateral inguinal hernia without obstruction or gangrene, recurrence not specified Anticipated CPT Code: laparoscopic right inguinal hernia repair with mesh - 04867-245 Anticipated Anesthetic: General Patient weight: Blood pressure 142/68, pulse 85, temperature 37.2 C (98.9 F), height 182.9 cm (6'),weight 71.7 kg (158 lb), SpO2 99 %. BMI: Body mass index is 21.43 kg/m . 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 COVID (Procedure Consent) Procedure Criteria Procedure Criteria: Yes Elective The surgeon/proceduralist and patient have discussed in detail therisk of exposure to and/or potential harm posed by the COVID-19 virus with having a surgery/procedure at this time versus the risk of delaying the surgery/procedure. It is not possible to know eitherthe risk of delaying the surgery or procedure or chance of getting an infection with perfect accuracy, but a joint decision was made between the patient and the surgeon/proceduralist to proceed at this time with the scheduled surgery/procedure as indicated on the consent form. Elio Cunningham III, MD documented [facility] Nurse Note* Sherry Parham - 12/12/2021 1:42 PM EDT REVIEW OF SYSTEMS: General: The patient denies fatigue, denies weight loss, denies weight gain, denies feeling hot, and denies feelings of cold. Eyes: The patient denies glaucoma, denies eye injury/surgery, does not wear glasses or contacts. Ear/Nose/Throat: The patient denies allergies, denies hayfever, denies ear infections, and denies bloody noses. Cardiovascular: The patient denies chest pain, denies heart disease, denies high blood pressure,denies cardiac stent, denies prior heart attack, denies irregular heart beat, denies high cholesterol, denies poor circulation, denies heart failure, other cardiac issues, denies claudication, denies cold feet, denies peripheral arterial stent. Respiratory: The patient denies tuberculosis, denies pneumonia, denies frequent cough, denies pulmonary embolism, denies shortness of breath, and denies coughing up blood. Gastrointestinal: The patient denies difficulty swallowing, denies acid reflux, denies ulcers, denies vomiting, denies jaundice/hepatitis, denies gallbladder problems, denies black or tarry stools, denies hemorrhoids, denies bleeding from rectum, denies diverticulitis, denies constipation, denies diarrhea, denies loss of stool control, and NOTES hernias. Kidney/Bladder: The patient denies kidney stones, denies urine infections, and denies bloody urine. Skin: The patient denies a history of skin cancer, denies bleeding/changing moles, and denies a history of skin rash. Neurologic: The patient denies a history of epilepsy/convulsions, denies headaches, denies head/spinal injuries, and denies stroke/TIA. Psychiatric: The patient denies psychiatric medications, denies depression, and denies voices, denies substance abuse. Endocrine: The patient denies thyroid disorders, denies diabetes, and denies hormonal problems. Hematologic: The patient denies a history of bruising, denies bleeding, and denies anemia, denies blood clots. Infections: The patient denies a history of measles and mumps, denies rheumatic fever, and denies sexually transmitted diseases. Musculoskeletal: The patient denies back pain/injury, denies back problems, denies sciatica, deniesknee/foot trouble, denies arthritis, or denies gout. When was patient's last Mammogram screening? N/A Last Colonoscopy: 06/17/2012 Sherry Parham [facility] History of Present illness Narrative* Manny Schwartz APRN.[facility] - 11/29/2021 8:07 AM EDT Chief Complaint Patient presents with: Mass HPI Yani Ngo is a 81 year old male who presents here today for Above Complaints.. Patient is here for complaint of possible inguinal hernia. Patient remarks that a few months ago hewas lifting a heavy log, helping a neighbor out, when he believed he pulled a groin muscle. Over the past few months he has noticed a bulge in the right groin area. Increases in size with coughing orsneezing. Intermittent pain in the area. No discoloration that he has noticed. No history of inguinal hernia in the past. Patient stays very active. Remarks that he went to a Boy [employer] camping and canoeing trip to [place] and has difficulty with backpacking, carrying canoes. He would like to get this fixed so that he can remain active. Past medical history, appointments, medications, allergies reviewed. Previous Medical History PAST MEDICAL HISTORY Diagnosis Date NEGATIVE MEDICAL HISTORY Normal cardiac stress test approx 2006 Previous Surgical History PAST SURGICAL HISTORY Procedure Laterality Date CATARACT SURGERY, COMPLEX 03/2013 removed from left eye-Dr. Gold COLONOSCOPY FLX DX W/COLLJ SPEC WHEN PFRMD 06/24/12 PAST SURGICAL HISTORY OF benign cyt removed from right arm as child TONSILLECTOMY & ADENOIDECTOMY <AGE 14 VASECTOMY UNI/BI SPX W/POSTOP SEMEN EXAMS 1979 Family History FAMILY HISTORY Problem Relation Age of Onset other (ovarian cancer) Mother Cancer Father colon cancer other (kidney disease) Father Diabetes Paternal Grandfather Patient Allergies ALLERGIES Allergen Reactions Augmentin [Amoxicil* Rash Sulfa (Sulfonamide * Hives Current Medications Current Outpatient Medications on File Prior to Visit Medication Sig erythromycin base (ERYTHROMYCIN OPHTHALMIC) Use in eyes. MULTI-VITAMIN ORAL Take by mouth once daily. multivitamin ORAL tablet Take 1 tablet by mouth once daily. valACYclovir (VALTREX) 1 gram tab Take 2 tablets by mouth twice daily. At onset of cold sores No current facility-administered medications on file prior to visit. Social History Social History Tobacco Use Smoking status: Never Smoker Smokeless tobacco: Never Used Substance Use Topics Alcohol use: Yes Alcohol/week: 22.5 standard drinks Types: 7 Glasses of Wine (5oz), 2 Mixed Drinks per week Comment: occasional Drug use: No REVIEW OF SYSTEMS: as above Reviewed relevant PMHx, PSHx, Social Hx, current medications and allergies. EXAM: BP 118/72 Pulse 60 Temp 36.1 C (97 F) (Left Tympanic) Resp 14 Wt 70.8 kg (156 lb) BMI 21.16 kg/m General Appearance: Well appearing, alert, in no acute distress, well-hydrated, well nourished.. Genitalia: Normal except for noticeable which present in the right inguinal canal, that is present without coughing or bearing down. It is not reducible. Left inguinal canal is normal. No discoloration in this area. Health Maintenance List ADVANCE DIRECTIVE DISCUSSION Never done INFLUENZA(1) due on 01/19/2022 DEPRESSION SCREENING due on 11/29/2022 DIABETES SCREEN due on 01/12/2023 DTAP,TDAP,TD(2 - Td or Tdap) due on 10/05/2025 SHINGRIX VACCINE Completed COVID-19 VACCINE Completed PNEUMOCOCCAL: 65+ Completed ASSESSMENT/PLAN: 1. Unilateral inguinal hernia without obstruction or gangrene, recurrence not specified - ICD9: 550.90, ICD10: K40.90 Right inguinal hernia found on exam. Discussed that we will get him to general surgery. Discussed red flags that team need to go to the ER immediately for signs of strangulation. Patient verbalized understanding. - CONSULT TO GENERAL SURGERY Manny Schwartz APRN.[facility] This note was partly generated using [employer] voice recognition dictation and may contain some misspelled or inaccurate words missed on review. 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/05/2011 08/31/2014 Seborrheic Keratoses 12/05/2011 08/31/2014 Solar Lentigines 12/05/2011 08/31/2014 Cryosurgical Scars 12/05/2011 08/31/2014 Epidermal cyst 12/05/2011 08/31/2014 Elbow swelling 04/02/2011 08/31/2014 Actinic keratosis 08/31/2006 09/09/2010 EPIDERMAL CYST///SEBACEOUS CYST 08/31/2006 09/09/2010 Normal cardiac stress test 09/09 Overview: approx 2006 documented as of this encounter (statuses as of 11/29/2021) [facility] of Past illness Narrative* Problem Noted Date Resolved Date 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 08/31/2014 Postinflammatory skin changes 03/12/2013 Xerosis cutis 08/24/2012 08/31/2014 Pyoderma, unspecified 02/06/2012 08/31/2014 Boil of neck 02/06/2012 08/31/2014 Actinic Keratoses: Premalignant AK's 12/05/2011 08/31/2014 Seborrheic Keratoses 12/05/2011 08/31/2014 Solar Lentigines 12/05/2011 08/31/2014 Cryosurgical Scars 12/05/2011 08/31/2014 Epidermal cyst 12/05/2011 08/31/2014 Elbow swelling 04/02/2011 08/31/2014 Actinic keratosis 08/31/2006 09/09/2010 EPIDERMAL CYST///SEBACEOUS CYST 08/31/2006 09/09/2010 Normal cardiac stress test 09/09 Overview: approx 2006 documented as of this encounter (statuses as of 12/12/2021) [facility] of Past illness Narrative* Problem Noted Date Resolved Date 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 08/31/2014 Postinflammatory skin changes 03/12/2013 Xerosis cutis 08/24/2012 08/31/2014 Pyoderma, unspecified 02/06/2012 08/31/2014 Boil of neck 02/06/2012 08/31/2014 Actinic Keratoses: Premalignant AK's 12/05/2011 08/31/2014 Seborrheic Keratoses 12/05/2011 08/31/2014 Solar Lentigines 12/05/2011 08/31/2014 Cryosurgical Scars 12/05/2011 08/31/2014 Epidermal cyst 12/05/2011 08/31/2014 Elbow swelling 04/02/2011 08/31/2014 Actinic keratosis 08/31/2006 09/09/2010 EPIDERMAL CYST///SEBACEOUS CYST 08/31/2006 09/09/2010 Normal cardiac stress test 09/09 Overview: approx 2006 documented as of this encounter (statuses as of 12/13/2021) [facility] note* Diagnosis Unilateral inguinal hernia without obstruction or gangrene, recurrence not specified- Primary documented in this encounter [facility] note* Diagnosis Unilateral inguinal hernia without obstruction or gangrene, recurrence not specified Unilateral inguinal hernia without obstruction or gangrene, recurrence not specified documented in this encounter [facility] note* Diagnosis Suspected COVID-19 virus infection- Primary Unilateral inguinal hernia without obstruction or gangrene, recurrence not specified documented in this encounter [facility] note* Diagnosis Unilateral inguinal hernia without obstruction or gangrene, recurrence not specified- Primary documented in this encounter [facility] note* Diagnosis Aftercare- Primary Unspecified aftercare [facility] Reason for Referral Specialty Diagnoses / Procedures Referred By Mason ling Referred To Contact General Surgery Diagnoses Unilateral inguinal hernia without obstruction or gangrene, recurrence not specified Procedures CONSULT TO GENERAL SURGERY OFFICE/OUTPATIENT [facility] 60-74 MINUTES Manny Schwartz APRN.LEADER[employer]IP DEVELOPMENT MANAGER [address] [place] [address] Referral ID Status Reason Start Date Expiration Date Visits Requested Visits Authorized [id number] Authorized PCP Requested Referral 11/29/2021 11/29/2022 1 1 Medications Administered Section Inactive Administered Medications - up to 3 most recent administrations Medication Order MAR Action Action Date Dose Rate Site acetaminophen 1,000 mg tab(s) (TYLENOL) 1,000 mg, ORAL, PRE-OP ONCE, 1 dose, On Sun12/28/21 at 1030, If ordered PRN for pain, patient/guardian may elect to receive this medication for higher pain levels INSTEAD of the opioid, if preferred: Yes, Preprocedure Given 12/28/2021 10:30 AM EDT 1,000 mg fentaNYL 50 mcg/mL 50 mcg injection (SUBLIMAZE) 50 mcg, INTRAVENOUS, EVERY 10 MINUTES NEEDED, 4 doses, Starting on Sun12/28/21 at 1322, Until Eda 12/29/21 at 0304, Moderate Pain (4-6) - Parenteral, Severe Pain (>/=7) - Parenteral, breakthrough pain, FIRST LINE THERAPY for mild, moderate, or severe pain, USE FOR MILD PAIN ONLY IF PATIENT IS UNABLE TO TOLERATE ORAL THERAPY, Recovery or Phase I (only) lactated ringers iv infusion 30 mL/hr, INTRAVENOUS, CONTINUOUS, Starting on Sun12/28/21 at 1030, Until Sun12/28/21 at 1318, Preprocedure Restarted 12/28/2021 12:05 PM EDT Health Concerns Infection Onset Date Last Indicated Resolved Time COVID-19 Confirmed 12/13/2021 12/13/2021 Summary Purpose Family History No Family History Records FoundNo Family History Records Found Advance Directives No Advanced Directives Records FoundDocuments on File Type Date Recorded Patient Ophthalmic Medical Technician Expl anation Advance Directive(s) 12/28/2021 9:45 AM Additional Source Comments Source Comments (unrecognize d section and content) In the event this informatio n is protected by the Federal Confidentiality of Alcohol and Drug Abuse Patient Records regulations: The Federal rules restrict any use of the information to criminally investigate or prosecute any alcohol or drug abuse patient.[facility] Center[facility] the event this information is protected by the Federal Confidentiality of Alcohol and Drug Abuse Patient Records regulations: The Federal rules restrict any use of the information to criminally investigate or prosecute any alcohol or drug abuse patient.[facility] CenterIn the event this information is protected by the Federal Confidentiality of Alcohol and Drug Abuse Patient Records regulations: The Federal rules restrict any use of the information to criminally investigate or prosecute any alcohol or drug abuse patient.[facility] CenterIn the event this information is protected by the Federal Confidentiality of Alcohol and Drug Abuse Patient Records regulations: The Federal rules restrict any use of the information to criminally investigate or prosecute any alcohol or drug abuse patient.[facility] CenterIn the event this information is protected by the Federal Confidentiality of Alcohol and Drug Abuse Patient Records regulations: The Federal rules restrict any use of the information to criminally investigate or prosecute any alcohol or drug abuse patient.[facility] CenterIn the event this information is protected by the Federal Confidentiality of Alcohol and Drug Abuse Patient Records regulations: The Federal rules restrict any use of the information to criminally investigate or prosecute any alcohol or drug abuse patient.[facility] Reason for Visit (unrecogniz ed section and content) Reason Comments Consult Right Inguinal Herni a Specialty Diagnoses / Procedures Referred By Mason ling Referred To Contact General Surgery Diagnoses Unilateral inguinal hernia without obstruction or gangrene, recurrence not specified Procedures CONSULT TO GENERAL SURGERY OFFICE/OUTPATIENT [facility] 60-74 MINUTES Manny Schwartz APRN.[facility] [address] [place] [address] Referral ID Status Reason Start Date Expiration Date V isits Requested Visits Authorized [id number] Closed PCP Requested Referral 11/29/2021 11/29/2022 1 1 Reason Comments Cough cough, runny nose an d fatigue x 1 day-positive COVID at home Reason Comments Follow Up Hernia surgery Care Teams (unrecognized sec tion and content) Display Fabricator Relationship Specialty Start Date End Date Sheri Kaur MD [address] [place], [place] [id number] PCP - General 08/03/08 Display Fabricator Relationship Specialty Start Date End Date Sheri Kaur MD [address] [place] [address] PCP - General 08/03/08 Display Fabricator Relationship Specialty Start Date End Date Sheri Kaur MD [address] [place] [address] PCP - General 08/03/08 Display Fabricator Relationship Specialty Start Date End Date Sheri Kaur MD [address] [place], [place] [id number] PCP - General 08/03/08 Display Fabricator Relationship Specialty Start Date End Date Sheri Kaur MD [address] [place], [place] [id number] PCP - General 08/03/08 Scheduled Active and Recently Administ ered Medications (unrecognized section and content) Continuous Medication Order 12/26/2021 12/27/2021 12/28/2021 lactated ringers iv infusion (CANCELED) 30 mL/hr, INTRAVENOUS, CONTINUOUS, Starting on Sun12/28/21 at 1030, Until Sun12/28/21 at 1318, Preprocedure 1030 (New Bag/Syring e/Bottle - Provider: Lizbeth Mckinney RN)1204 (Stopped - Provider: Sherry Oneill APRN.CRNA - Comment: Switch to gravity)1205 (Restarted - Provider: Sherry Oneill APRN.CRNA)1257 (Infusion Complete - Provider: Sherry Oneill APRN.CRNA) lactated ringers iv infusion 50 mL/hr, INTRAVENOUS, CONTINUOUS, Starting on Sun12/28/21 at 1330, Until Eda 12/29/21 at 0304, Recovery or Phase I (only) 1330 (Due) PRN Medication Order 12/26/2021 12/27/2021 12/28/2021 bupivacaine (PF) 0.5 % (5 mg/mL) injection (CANCELED) X (OR/PROCEDURE) PRN, Starting on Sun12/28/21 at 1231, Until Sun12/28/21 at 1318, Intraprocedure 1231 (Given - Provid er: Elio Cunningham MD)1258 (Given - Provider: Elio Cunningham MD) fentaNYL 50 mcg/mL 50 mcg injection (SUBLIMAZE) 50 mcg, INTRAVENOUS, EVERY 10 MINUTES NEEDED, 4 doses, Starting on Sun12/28/21 at 1322, Until Eda 12/29/21 at 0304, Moderate Pain (4-6) - Parenteral, Severe Pain (>/=7) - Parenteral, breakthrough pain, FIRST LINE THERAPY for mild, moderate, or severe pain, USE FOR MILD PAIN ONLY IF PATIENT IS UNABLE TO TOLERATE ORAL THERAPY, Recovery or Phase I (only) meperidine (PF) 12.5 mg injection (DEMEROL) 12.5 mg, INTRAVENOUS, EVERY 10 MINUTES NEEDED, 2 doses, Starting on Sun12/28/21 at 1322, Until Eda 12/29/21 at 0304, for shivering, May Repeat 12.5 mg in 10 minutes X1, Recovery or Phase I (only) oxyCODONE IR 5 mg tab(s) (ROXICODONE) 5 mg, ORAL, NEEDED, 1 dose, Starting on Sun12/28/21 at 1322, Until Eda 12/29/21 at 0304, Mild Pain (1-3) - Enteral, Recovery or Phase I (only) prochlorperazine 10 mg injection (COMPAZINE) 10 mg, INTRAVENOUS, EVERY 6 HOURS NEEDED, Starting on 12/28/21 at 1322, Until Eda 12/29/21 at 0304, Nausea/Vomiting - First Line - Parenteral, EVERY 6 HOURS NEEDED Protect From Light, Recovery or Phase I (only) (unrecognized sect ion and content) No Status Records FoundNo Status Records Found INFORMATION SOURCE (unrecogn ized section and content) DATE CREATED AUTHOR AUTHOR'S ORGANIZ ATION 05/24/2023 [facility] FOR RECORDS PERTAINING TO PATIENTS WHO ARE OR HAVE BEEN ENROLLED IN A CHEMICAL DEPENDENCY/SUBSTANCEABUSE PROGRAM, SOME INFORMATION MAY BE OMITTED. This clinical summary was aggregated from multiple sources. Caution should be exercised in using it in the provision of clinical care. This summary normalizes information from multiple sources, and as a consequence, information in this document may materially change the coding, format and clinical context of patient data. In addition, data may be omitted in some cases. CLINICAL DECISIONS SHOULD BE BASED ON THE PRIMARY CLINICAL RECORDS. [employer] provides no warranty or guarantee of the accuracy or completeness of information in this document.
[2023-06-12 10:01] LABS: PSA,Total- Diagnostic 8.21 ng/mL (0.0-4.0)
== END | disposition home or self-care (01) ==
LOC: LAB 08:41
PROVIDERS: PCP Family Medicine; Referring Provider Urology; Visit Provider Urology
DX: R97.20 Elevated prostate specific antigen [PSA] (principal)
CPT/HCPCS: 36415; 84153

== ENCOUNTER → 2023-06-15 | Outpatient (CLI) | payer MEDICARE, OTHER, SELFPAY ==
--- OUTSIDE RECORDS SUMMARY | 2023-06-15 10:56 | XMS RPT_ITS | CCD ---
Author Name Unknown Address [address] [place] [address] Organization [facility] Care Team Providers Care Behavior Specialist Name Role Phone Sheri Kaur MD Primary Care Provider [phone] SHERI KAUR Primary Care Unavailable SAMANTHA TIM Referring Unavailable SHERI KAUR Primary Care Unavailable SAMANTHA TIM Attending Unavailable SHERI KAUR Primary Care Unavailable Allergies Allergy Classification Reported Allergen(s) Allergy Type Date of Onset Reaction(s) Facility (7 sources) Amoxicillin / Clavulanate; Translations: [AMOXICILLIN-POT CLAVULANATE] Drug Allergy 7 [facility] (7 sources) Sulfonamides (Antibiotic); Translations: [SULFA (SULFONAMIDE ANTIBIOTICS)] Propensity to adverse reactions 6 [facility] Work Phone: Medications Current Medications Medication Drug [...] 182.9 cm Elio Cunningham MD Work Phone: [facility] 01-05-2022 13:52-0400 Body temperature 97.9 [degF] Elio Cunningham MD Work Phone: [facility] 01-05-2022 13:52-0400 Body weight 70.31 kg Elio Cunningham MD Work Phone: [facility] 01-05-2022 13:52-0400 Diastolic blood pressure 68 mm[Hg] Elio Cunningham MD Work Phone: [facility] 01-05-2022 13:52-0400 Heart rate 65 /min Elio Cunningham MD Work Phone: [facility] 01-05-2022 13:52-0400 SaO2% (BldA) [Mass fraction] 100 % Elio Cunningham MD Work Phone: [facility] 01-05-2022 13:52-0400 Systolic blood pressure 136 mm[Hg] Elio Cunningham MD Work Phone: [facility] 12-28-2021 14:00-0400 Diastolic blood pressure 72 mm[Hg] Elio Cunningham MD Work Phone: [facility] 12-28-2021 14:00-0400 Heart rate 46 /min Elio Cunningham MD Work Phone: [facility] 12-28-2021 14:00-0400 Respiratory rate 14 /min Elio Cunningham MD Work Phone: [facility] 12-28-2021 14:00-0400 SaO2% (BldA) [Mass fraction] 99 % Elio Cunningham MD Work Phone: [facility] 12-28-2021 14:00-0400 Systolic blood pressure 155 mm[Hg] Elio Cunningham MD Work Phone: [facility] 12-28-2021 13:10-0400 Body temperature 96.8 [degF] Elio Cunningham MD Work Phone: [facility] 12-28-2021 10:19-0400 Body height 182.9 cm Elio Cunningham MD Work Phone: [facility] 12-28-2021 10:19-0400 Body weight 71.67 kg Elio Cunningham MD Work Phone: [facility] 12-13-2021 18:02-0400 Body temperature 98.8 [degF] Natalio Gee CABLE WAY OPERATOR.AVIATION ELECTRONIC WARFARE OPERATOR Work Phone: [facility] 12-13-2021 18:02-0400 Body weight 71.85 kg Natalio Gee CABLE WAY OPERATOR.AVIATION ELECTRONIC WARFARE OPERATOR Work Phone: [facility] 12-13-2021 18:02-0400 Diastolic blood pressure 72 mm[Hg] Natalio Gee CABLE WAY OPERATOR.AVIATION ELECTRONIC WARFARE OPERATOR Work Phone: [facility] 12-13-2021 18:02-0400 Heart rate 68 /min Natalio Gee CABLE WAY OPERATOR.AVIATION ELECTRONIC WARFARE OPERATOR Work Phone: [facility] 12-13-2021 18:02-0400 Respiratory rate 16 /min Natalio Gee CABLE WAY OPERATOR.AVIATION ELECTRONIC WARFARE OPERATOR Work Phone: [facility] 12-13-2021 18:02-0400 SaO2% (BldA) [Mass fraction] 98 % Natalio Gee CABLE WAY OPERATOR.AVIATION ELECTRONIC WARFARE OPERATOR Work Phone: [facility] 12-13-2021 18:02-0400 Systolic blood pressure 136 mm[Hg] Natalio Gee CABLE WAY OPERATOR.AVIATION ELECTRONIC WARFARE OPERATOR Work Phone: [facility] 12-12-2021 13:42-0400 Body height 182.9 cm Elio Cunningham MD Work Phone: [facility] 12-12-2021 13:42-0400 Body temperature 98.91 [degF] Elio Cunningham MD Work Phone: [facility] 12-12-2021 13:42-0400 Body weight 71.67 kg Elio Cunningham MD Work Phone: [facility] 12-12-2021 13:42-0400 Diastolic blood pressure 68 mm[Hg] Elio Cunningham MD Work Phone: [facility] 12-12-2021 13:42-0400 Heart rate 85 /min Elio Cunningham MD Work Phone: [facility] 12-12-2021 13:42-0400 SaO2% (BldA) [Mass fraction] 99 % Elio Cunningham MD Work Phone: [facility] 12-12-2021 13:42-0400 Systolic blood pressure 142 mm[Hg] Elio Cunningham MD Work Phone: [facility] 11-29-2021 08:03-0400 Body temperature 97 [degF] Manny Schwartz CABLE WAY OPERATOR.AVIATION ELECTRONIC WARFARE OPERATOR Work Phone: [facility] 11-29-2021 08:03-0400 Body weight 70.76 kg Manny Schwartz APRN.AVIATION ELECTRONIC WARFARE OPERATOR Work Phone: [facility] 11-29-2021 08:03-0400 Diastolic blood pressure 72 mm[Hg] Manny Schwartz CABLE WAY OPERATOR.AVIATION ELECTRONIC WARFARE OPERATOR Work Phone: [facility] 11-29-2021 08:03-0400 Heart rate 60 /min Manny Schwartz CABLE WAY OPERATOR.AVIATION ELECTRONIC WARFARE OPERATOR Work Phone: [facility] 11-29-2021 08:03-0400 Respiratory rate 14 /min Manny Schwartz CABLE WAY OPERATOR.AVIATION ELECTRONIC WARFARE OPERATOR Work Phone: [facility] 11-29-2021 08:03-0400 Systolic blood pressure 118 mm[Hg] Manny Schwartz APRN.AVIATION ELECTRONIC WARFARE OPERATOR Work Phone: [facility] Encounters Encounter Date Encounter Type Care Provider Facility Start: 05-18-2023 End: 05-19-2023 ambulatory [facility] Facility:[facility] Start: 05-16-2023 End: 05-17-2023 [facility] Facility:[facility] Start: 05-16-2023 Patient encounter procedure SAMANTHA WOODNj [facility] Start: 05-08-2023 End: 05-09-2023 ambulatory [facility] Facility:[facility] Start: 03-11-2022 End: 03-11-2022 ambulatory [facility] Nurse Mayela Work Phone: [facility] [place] Procedures Date Procedure Procedure Detail Performing Clinician Start: 03-11-2022 [email or web address] COVI D-19 BIVALENT BOOSTER VACCINE, AGE 12+ YR Franky Cid DO Work Phone: Start: 03-11-2022 INFLUENZA SEASONAL QUADRIVALENT HIGH DOSE AGE 65+ Franky Cid DO Work Phone: Start: 11-29-2021 Adult depression scr eening assessment Manny Schwartz APRN.AVIATION ELECTRONIC WARFARE OPERATOR Work Phone: Plan of Treatment Date Care Activity Detail Author Start: 10-05-2025 Urine microalbumin profile DTAP,TDAP,TD (2 - Td or Tdap) [facility] Start: 01-12-2023 DIABETES SCREEN DIABETES SCREEN [facility] Start: 11-29-2022 Adult depression screening assessment DEPRESSION SCREENING [facility] Start: 01-19-2022 Influenza vaccination INFLUENZA (#1) [facility] Start: 05-21-2021 ADVANCE DIRECTIVE DISCUSSION ADVANCE DIRECTIVE DISCUSSION [facility] Start: 05-21-2021 DEPRESSION ASSESSMENT DEPRESSION ASSESSMENT [facility] SARS-CoV-2 (COVID-19 ) RNA [Presence] in Respiratory specimen by JAMES with probe detection 2019 CORONAVIRUS Microbiology Routine Suspected COVID-19 virus infection Ordered: 12/13/2021 [facility] Work Phone: Immunizations Immunization Date Immunization Notes Care Provider [facility] 03-11-2022 COVID-19 booster vaccine, age 12+ yr, bivalent (PFIZER-BIONTECH) Immunization [place] Work Phone: [facility] Work Phone: 03-11-2022 influenza, high-dose , quadrivalent vaccine (FLUZONE HIGH DOSE QUADRIVALENT) Immunization [place] Work Phone: [facility] 09-02-2021 COVID-19 vaccine, ag e 12+ yr (PFIZER-BIONTECH - DIAZ TOP) Manny Efren CABLE WAY OPERATOR.AVIATION ELECTRONIC WARFARE OPERATOR Work Phone: [facility] 03-03-2021 COVID-19 vaccine, ag e 12+ yr (PFIZER-BIONTECH - PURPLE TOP) Manny Efren CABLE WAY OPERATOR.AVIATION ELECTRONIC WARFARE OPERATOR Work Phone: [facility] 03-03-2021 influenza, high dose seasonal, preservative-free Manny Efren CABLE WAY OPERATOR.AVIATION ELECTRONIC WARFARE OPERATOR Work Phone: [facility] 07-15-2020 COVID-19 vaccine, ag e 12+ yr (PFIZER-BIONTECH - PURPLE TOP) Manny Efren CABLE WAY OPERATOR.AVIATION ELECTRONIC WARFARE OPERATOR Work Phone: [facility] 06-25-2020 COVID-19 vaccine, ag e 12+ yr (PFIZER-BIONTECH - PURPLE TOP) Manny Efren CABLE WAY OPERATOR.AVIATION ELECTRONIC WARFARE OPERATOR Work Phone: [facility] 02-21-2020 influenza, high-dose , quadrivalent vaccine (FLUZONE HIGH DOSE QUADRIVALENT) Manny Efren CABLE WAY OPERATOR.AVIATION ELECTRONIC WARFARE OPERATOR Work Phone: [facility] 03-14-2019 influenza, high dose seasonal, preservative-free Manny Efren CABLE WAY OPERATOR.AVIATION ELECTRONIC WARFARE OPERATOR Work Phone: [facility] 01-30-2019 zoster vaccine recombinant Manny Efren CABLE WAY OPERATOR.AVIATION ELECTRONIC WARFARE OPERATOR Work Phone: [facility] Work Phone: 07-26-2018 zoster vaccine recombinant Manny Efren CABLE WAY OPERATOR.AVIATION ELECTRONIC WARFARE OPERATOR Work Phone: [facility] 03-21-2018 influenza, high dose seasonal, preservative-free Manny Efren CABLE WAY OPERATOR.AVIATION ELECTRONIC WARFARE OPERATOR Work Phone: [facility] 10-06-2015 pneumococcal conjuga te vaccine, 13 valent Manny Efren CABLE WAY OPERATOR.AVIATION ELECTRONIC WARFARE OPERATOR Work Phone: [facility] 10-06-2015 tetanus toxoid, redu maria luisa diphtheria toxoid, and acellular pertussis vaccine, adsorbed Manny Efren CABLE WAY OPERATOR.AVIATION ELECTRONIC WARFARE OPERATOR Work Phone: [facility] 03-15-2013 influenza virus vaccine, unspecified formulation Manny Efren CABLE WAY OPERATOR.AVIATION ELECTRONIC WARFARE OPERATOR Work Phone: [facility] Work Phone: 02-17-2012 influenza virus vaccine, unspecified formulation Manny Efren CABLE WAY OPERATOR.AVIATION ELECTRONIC WARFARE OPERATOR Work Phone: [facility] 03-22-2011 influenza virus vaccine, unspecified formulation Manny Efren CABLE WAY OPERATOR.AVIATION ELECTRONIC WARFARE OPERATOR Work Phone: [facility] Work Phone: 03-23-2009 influenza virus vaccine, unspecified formulation Manny Efren CABLE WAY OPERATOR.AVIATION ELECTRONIC WARFARE OPERATOR Work Phone: [facility] 08-03-2008 zoster vaccine, live Manny C ecil CABLE WAY OPERATOR.AVIATION ELECTRONIC WARFARE OPERATOR Work Phone: [facility] Work Phone: 07-03-2008 pneumococcal polysaccharide vaccine, 23 valent Manny Efren CABLE WAY OPERATOR.AVIATION ELECTRONIC WARFARE OPERATOR Work Phone: [facility] Work Phone: 01-15-2004 tetanus and diphther ia toxoids, adsorbed, preservative free, for adult use (2 Lf of tetanus toxoid and 2 Lf of diphtheria toxoid) Manny Schwartz APRN.[facility] Work Phone: [facility] Work Phone: Payers Date Payer Category Payer Private Health Insurance [facility] SUPPLEMENT [id number] 2021-Present [phone] [address] [place] [address] Indemnity [id number] 2021 Private Health Insurance [facility] SUPPLEMENT [id number] 2021-Present [phone] [address] [place] [address] Indemnity [id number] 2021 Private Health Insurance [id number] 2007 Medicare MEDICARE MEDICAR E A AND B [id number] 2007-Present [phone] [place] [address] Medicare [id number] 2007 Medicare MEDICARE MEDICAR E A AND B [id number] 2007-Present [phone] [place] [address] Medicare [id number] 2007 Medicare [id number] Social History Date Type Detail Facility Start: 04-06-2011 [facility] Start: 11-29-2021 End: 01-26-2022 Alcohol intake Current drinker of alcohol (finding) [facility] Start: 11-29-2021 End: 01-26-2022 Alcohol intake [facility] Start: 04-13-2020 History SDOH Alcohol Frequency 5 [facility] Start: 04-13-2020 End: 11-29-2020 History SDOH Alcohol Std Drinks 1 [facility] Start: 04-13-2020 History SDOH Social Connections Phone 4 [facility] Start: 04-13-2020 End: 11-29-2020 History SDOH Social Connections Get Together 2 [facility] Start: 04-13-2020 History SDOH Social Connections Meetings 3 [facility] Start: 04-13-2020 Education 19 [facility] Start: 1940 Sex Assigned At Not on file [facility] Start: 11-19-2021 End: 01-05-2022 Exposure to SARS-CoV-2 (event) Not sure [facility] Start: 04-06-2011 Tobacco use and exposure Smoke less tobacco non-user [facility] Work Phone: Start: 12-18-2021 End: 12-28-2021 Exposure to SARS-CoV-2 (event) Yes [facility] Medical Equipment Procedure Code Equipment Code Equipment Origin al Text Equipment Identifier Dates Mesh Progrip Chase Pet [id number] Surgical Self Fixate Flat Sheet Hernia Sterile - [id number] Start: 12-28-2021 Clinical Notes 04-11-2013 to 05-16-2023 Elio Cuninngham MD - 01/05/2022 2:14 PM EDT Note Date & Type Note Facility 05-16-2023 Note HNO ID: [id number] Author: Samantha Tim APRN.AVIATION ELECTRONIC WARFARE OPERATOR Service: ? Author Type: Nurse Practitioner Type: [...] understanding. This note was partially generated using Domainex recognition system. Note was reviewed for accuracy. There may be minor misspellings or grammar miscues with Dragon voice recognition. [facility] 01-05-2022 History of Present illness Narrative Subjective: Patient is status post laparoscopic right inguinal hernia repair completed at [facility] on 12/28/2021. Patient has had no difficulty [...] another screening colonoscopy. documented in this encounter [facility] 12-28-2021 Note HNO ID: [id number] Author: Sherry Oneill APRN.CARDIO TECH Service: ? 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 Staffing CARDIO TECH: Sherry Oneill APRN.CARDIO TECH Performed by: EUGENIE Indications and Patient Condition [...] December 28, 2021 TIME: 12:28 PM CSN: [id number] [facility] documented as of this encounter (statuses as of 12/29/2021) [facility]08-10-2022 History of Past illness Narrative* Problem Noted [...] of this encounter (statuses as of 01/05/2022) [facility]08-10-2022 History of Past illness Narrative* Problem Noted [...] of this encounter (statuses as of 03/11/2022) [facility]08-10-2022 Miscellaneous Notes* Operative Report - Elio Cunningham MD - 12/28/2021 12:05 PM EDT OPERATIVE/PROCEDURE REPORT LOG ID: [id number] SURGERY/PROCEDURE DATE: 12/28/2021 INCISION/PROCEDURE START TIME: 12:26 PM INCISION CLOSE/PROCEDURE END TIME: 1:03 PM SURGEON(S)/PROCEDURALIST(S) AND BUSINESS ADMINISTRATION TEACHER(S): Surgeon(s) and Role: * Elio Cunningham MD - Primary Physician Superintendent [employer]: Therese Quintanilla PA-C SURGERY/PROCEDURE(S): Laparoscopic right inguinal [...] the umbilical port was closed with a [id number]-sq-lxaoz stitch of 0 Vicryl. Skin incisions were closed with subcuticular stitches of 4-0 Monocryl. Steri-Strips were applied sterile dressings were applied and the patient tolerated the procedure well. I did inspect the left side no signs of any hernia were identified. Therese Quintanilla PA-C was my car rental sales assistant. She assisted with retraction, visualization and [...] 2021 TIME: 1:08 PM documented in [facility] History and physical note * Elio Cunningham MD - 12/28/2021 10:35 AM EDT Images from the original note were not included. HISTORY AND PHYSICAL Yani Ngo 1940 REFERRING PHYSICIAN: Manny Schwartz APRN.AVIATION ELECTRONIC WARFARE OPERATOR CHIEF COMPLAINT: Consult (Right Inguinal Hernia) HPI: [...] entered by the nurse and reviewed by nd Nursing Notes: Sherry Parham 12/12/2021 1:44 PM [...] right inguinal hernia repair with mesh - [id number] Anticipated Anesthetic: General Patient weight: Blood pressure 142/68, pulse 85, temperature 37.2 C (98.9 F), height 182.9 cm (6'),weight 71.7 kg (158 lb), SpO2 99 %. BMI: Body mass index is 21.43 kg/m . Planned antibiotic: clindamycin 900mg IVPB dimensional engineer to OR SCDs needed - Yes Return [...] 2021 TIME: 10:36 AM documented in [facility] Instructions* Patient Instructions* Natalio Gee APRN.AVIATION ELECTRONIC WARFARE OPERATOR - 12/13/2021 6:17 PM EDT How to [...] or concerning to you. documented in this encounterGrand [facility] History of Present illness Narrative* Natalio Gee [...] of care. This note was generated using FanChatter software. It may contain errors in wording, punctuation, or spelling. Natalio Gee APRN.[facility] documented in this encounterGrand [facility] History of Present illness Narrative* Elio Cunningham [...] right inguinal hernia repair with mesh - [id number] Anticipated Anesthetic: General Patient weight: Blood pressure 142/68, pulse 85, temperature 37.2 C (98.9 F), height 182.9 cm (6'),weight 71.7 kg (158 lb), SpO2 99 %. BMI: Body mass index is 21.43 kg/m . Planned antibiotic: clindamycin 900mg IVPB dimensional engineer to OR SCDs needed - Yes Return [...] Elio Cunningham III, MD documented in this encounterGrand [facility] Nurse Note* Sherry Parham - 12/12/2021 1:42 [...] Colonoscopy: 06/17/2012 Sherry Parham documented in this encounterGrand [facility] History of Present illness Narrative* Manny Schwartz APRN.[facility] - 11/29/2021 8:07 AM EDT Chief Complaint [...] Remarks that he went to a [employer] camping and canoeing trip to [place] and has difficulty with backpacking, carrying canoes. [...] APRN.MARQUIS This note was partly generated using FanChatter voice recognition dictation and may contain some misspelled or inaccurate words missed on review. documented in this encounterGrand [facility] History of Past illness Narrative* Problem Noted [...] of this encounter (statuses as of 11/29/2021) [facility] History of Past illness Narrative* Problem Noted [...] of this encounter (statuses as of 12/12/2021) [facility] History of Past illness Narrative* Problem Noted [...] of this encounter (statuses as of 12/13/2021) [facility] note* Diagnosis Unilateral inguinal hernia without obstruction or gangrene, recurrence not specified- Primary documented in this encounter [facility] note* Diagnosis Unilateral inguinal hernia without obstruction or gangrene, recurrence not specified Unilateral inguinal hernia without obstruction or gangrene, recurrence not specified documented in this encounter [facility] note* Diagnosis Suspected COVID-19 virus infection- Primary Unilateral inguinal hernia without obstruction or gangrene, recurrence not specified documented in this encounter [facility] note* Diagnosis Unilateral inguinal hernia without obstruction or gangrene, recurrence not specified- Primary documented in this encounter [facility] note* Diagnosis Aftercare- Primary Unspecified aftercare documented in this encounter [facility] Reason for Referral Specialty Diagnoses / Procedures Referred By Mason ling Referred To Contact General Surgery Diagnoses Unilateral inguinal hernia without obstruction or gangrene, recurrence not specified Procedures CONSULT TO GENERAL SURGERY OFFICE/OUTPATIENT [facility] 60-74 MINUTES Manny Schwartz APRN.AVIATION ELECTRONIC WARFARE OPERATOR [address] [place] [address] Referral ID Status Reason Start Date Expiration Date Visits Requested Visits Authorized [id number] Authorized PCP Requested Referral 11/29/2021 11/29/2022 1 [...] FoundDocuments on File Type Date Recorded Patient Store Administrative Assistant Expl anation Advance Directive(s) 12/28/2021 9:45 AM Additional Source Comments Source Comments (unrecognize d section and content) In the event this informatio n is protected by the Federal Confidentiality of Alcohol and Drug Abuse Patient Records regulations: The Federal rules restrict any use of the information to criminally investigate or prosecute any alcohol or drug abuse patient.[facility] Hospital[facility] the event this information is protected by the Federal Confidentiality of Alcohol and Drug Abuse Patient Records regulations: The Federal rules restrict any use of the information to criminally investigate or prosecute any alcohol or drug abuse patient.[facility] Hospital[facility] the event this information is protected by the Federal Confidentiality of Alcohol and Drug Abuse Patient Records regulations: The Federal rules restrict any use of the information to criminally investigate or prosecute any alcohol or drug abuse patient.[facility] HospitalIn the event this information is protected by the Federal Confidentiality of Alcohol and Drug Abuse Patient Records regulations: The Federal rules restrict any use of the information to criminally investigate or prosecute any alcohol or drug abuse patient.[facility] the event this information is protected by the Federal Confidentiality of Alcohol and Drug Abuse Patient Records regulations: The Federal rules restrict any use of the information to criminally investigate or prosecute any alcohol or drug abuse patient.[facility] the event this information is protected by the Federal Confidentiality of Alcohol and Drug Abuse Patient Records regulations: The Federal rules restrict any use of the information to criminally investigate or prosecute any alcohol or drug abuse patient.[facility] Reason for Visit (unrecogniz ed section and content) Reason Comments Consult Right Inguinal Herni a Specialty Diagnoses / Procedures Referred By Mason ling Referred To Contact General Surgery Diagnoses Unilateral inguinal hernia without obstruction or gangrene, recurrence not specified Procedures CONSULT TO GENERAL SURGERY OFFICE/OUTPATIENT [facility] 60-74 MINUTES Manny Schwartz APRN.[facility] [address] [place] [address] Referral ID Status Reason Start Date Expiration Date V isits Requested Visits Authorized [id number] Closed PCP Requested Referral 11/29/2021 11/29/2022 1 1 Reason Comments Cough cough, runny nose an d fatigue x 1 day-positive COVID at home Reason Comments Follow Up Hernia surgery Care Teams (unrecognized sec tion and content) Behavior Specialist Relationship Specialty Start Date End Date Sheri Kaur MD [address] [place], [place] [id number] PCP - General 08/03/08 Behavior Specialist Relationship Specialty Start Date End Date Sheri Kaur MD [address] [place] [address] PCP - General 08/03/08 Behavior Specialist Relationship Specialty Start Date End Date Sheri Kaur MD [address] [place] [address] PCP - General 08/03/08 Behavior Specialist Relationship Specialty Start Date End Date Sheri Kaur MD [address] [place], [place] [id number] PCP - General 08/03/08 Behavior Specialist Relationship Specialty Start Date End Date Sheri Kaur MD [address] [place], [place] [id number] PCP - General 08/03/08 Scheduled Active and [...] DATE CREATED AUTHOR AUTHOR'S ORGANIZ ATION 05/24/[address] [facility] FOR RECORDS PERTAINING TO PATIENTS WHO [...] BE BASED ON THE PRIMARY CLINICAL RECORDS. [employer] provides no warranty or guarantee of the accuracy or completeness of information in this document.
[2023-06-16 09:09] LABS: PSA, Free 1.68 ng/mL
== END | disposition home or self-care (01) ==
LOC: LAB 10:24
PROVIDERS: PCP Family Medicine; Referring Provider Urology; Visit Provider Urology
DX: R97.20 Elevated prostate specific antigen [PSA] (principal)
CPT/HCPCS: 36415; 84153; 84154

== ENCOUNTER 2024-01-20 13:30 | Emergency (ER) | payer MEDICARE, OTHER, SELFPAY ==
[2024-01-20 13:31] VITALS: BP 144/79; PULSE 65; RESP 16; TEMP 36.6; O2SAT 96; BMI 22.4
--- NOTE | 2024-01-20 15:11 | EDS_ITS ---
HPI History of Present Illness Chief Complaint: Duckworth C/O Informant: patient and spouse/S.O. Narrative Narrative: 83-year-old male status post prostatectomy by Dr. Osman at [facility] Last week. Patient states that he is having leakage of urine and some small blood around the catheter at the tip of his penis. He notes that the catheter itself is draining well. He has been experiencing some mild constipation took a stool softener today (Milk of Magnesia). Patient denies any fevers. He was unable to get a hold of urology. [facility] Medical History Frequency of urination Home Medications ?Medication ?Instructions ?Recorded ?Last Taken ?Type erythromycin 5 mg/gram (0.5 %) eye 1 applic ophthalmic (eye) DAILY 04/12/21 Unknown History ointment multivitamin 1 tab PO DAILY 04/12/21 Unknown History triamcinolone acetonide 0.1 % 1 applic topical TID PRN 04/12/21 Unknown History topical cream valacyclovir 500 mg tablet 500 mg PO DAILY PRN 04/12/21 Unknown History Allergy/AdvReac Type Severity Reaction Status Date / Time Sulfa (Sulfonamide Allergy unknown Verified 01/20/24 13:32 Antibiotics) Family History Father Kidney disease Mother Cancer Ovarian Surgical History (Updated 01/20/24 @ 15:[address] Elio Sanchez DO) S/P prostatectomy H/O removal of cyst H/O vasectomy History of colonoscopy Social History Smoking Status: Never smoker alcohol intake: current details: will have a drink in the evening substance use type: does not use ROS ROS ED Constitutional Constitutional ED: Denies chills, fever(s) or weight loss Eyes Eyes: Denies change in vision or diplopia ENT ENT ED: Denies ear pain, rhinorrhea or sore throat Cardiovascular Cardiovascular: Denies chest pain, orthopnea, palpitations or racing heartbeat Respiratory/Chest Respiratory/Chest: Denies cough, dyspnea or orthopnea Gastrointestinal Gastrointestinal: Reports constipation; Denies abdominal pain, diarrhea, nausea or vomiting Genitourinary Genitourinary ED: Reports other Details: See history of present illness ; Denies dysuria, hematuria or urinary frequency Musculoskeletal Musculoskeletal: Denies arthralgias or myalgias Integumentary Denies abscess or rash Neurologic Neurologic: Denies headache(s) or weakness Psychiatric Psychiatric: Denies anxiety, depression, suicidal ideation or suicidal thoughts Endocrine Endocrinology: Denies polydipsia, polyphagia or polyuria Allergic/Immunologic Allergic/Immunologic ED: Denies mouth swelling, tongue swelling or urticaria EXAM Physical Exam Const Vital Signs: 01/20/24 13:31 Temperature 97.8 F Temperature Source Temporal Pulse Rate 65 Respiratory Rate 16 Blood Pressure 144/79 H Blood Pressure Mean 100 Pulse Ox 96 Positive well nourished and well developed General Appearance ED: well developed HEENT Reports normocephalic, head/scalp atraumatic and moist mucous membranes Eyes PERRL and EOMs intact bilaterally Neck no lymphadenopathy, supple and no JVD Resp normal respiratory effort and clear to auscultation bilaterally Cardio regular rate, regular rhythm and no murmurs GI normal to inspection, nondistended, normoactive bowel sounds and non-tender GI Narrative: Surgical incisions appear to be healing. Palpation: soft Narrative: Indwelling Duckworth catheter. No complications of the meatus noted. Catheter a ppears to be draining appropriately Back/Spine no CVA tenderness and normal ROM Extremity normal to inspection General Extremety ED: Negative for edema General Extremity: Negative for edema Neuro oriented x3 and CN's II-XII intact bilaterally Sensorium / Orientation: alert Motor Exam: strength 5/5 throughout Psych mental status grossly normal Mood & Affect: Negative for depressed or tearful Skin no rashes or lesions noted and no wounds MDM MDM MDM Narrative Medical decision making narrative: Differential diagnosis includes but not limited to displacement of the catheter balloon balloon collapse blockage of Duckworth catheter Bladder scan is negative. There is only about 18 cc in the Duckworth balloon. It is to hold 30 cc. Balloon was inflated and pulled taught. A new cath secure device was placed on thigh. I advised the patient to continue home care. Should the catheter stopped draining completely I would recommend him going to [facility] As he is postoperative status. If he has concerns I cannot get a hold of his urologist and certainly return here or go there. History & Record Review Discussion w/independent historian: Patient and Significant other Discharge Plan Triage Chief Complaint: Duckworth C/O ED Provider: Elio Sanchez Dx/Rx/DC Orders Clinical Impression: Displacement of Duckworth catheter Instructions: Indwelling Urinary Catheter Dc Prescriptions: No Action multivitamin Tablet 1 tab PO DAILY triamcinolone acetonide 0.1 % cream 1 applic topical TID PRN erythromycin 5 mg/gram (0.5 %) ointment 1 applic ophthalmic (eye) DAILY valacyclovir 500 mg tablet 500 mg PO DAILY PRN Patient Comments: for cold sores Primary Care Provider: Tereso Mercado Referrals: Tereso Mercado MD [Primary Care Provider] - Activity Restrictions/Additional Instructions: If your catheter stops draining please go to [facility] emergency department as a catheter was placed postoperatively. Print Language: Chinese Disposition Disposition: Home, Self Care
[2024-01-20 15:29] VITALS: BP 109/77; PULSE 64; RESP 15; TEMP 36.4; O2SAT 98
== END 2024-01-20 15:30 | disposition home or self-care (01) ==
LOC: ED 15:27
PROVIDERS: Emergency Provider Emergency Medicine; PCP Family Medicine; Visit Provider Emergency Medicine
DX: T83.021A Displacement of indwelling urethral catheter, initial encounter (principal); X58.XXXA Exposure to other specified factors, initial encounter
CPT/HCPCS: 99282

== ENCOUNTER → 2025-01-05 | Outpatient (CLI) | payer MEDICARE, OTHER, SELFPAY ==
--- NOTE | 2025-01-05 10:10 | STEWCON_ITS ---
Reason For Study Reason For Study: Abnormal EKG Stress Results Protocol: Gene Protocol WITH DEFINITY Maximum Predicted HR: 138 bpm Target HR: 117 bpm % Maximum Predicted HR: 93 % DurationHeart Rate Stage (mm:ss) (bpm) BP Comment Baseline 45 124/70No Chest Pain; 2 ML Diluted Definity Gene Protocol Stage I 3:00 90 164/78No Chest Pain Gene Protocol Stage II 3:00 112 168/72No Chest Pain Gene Protocol Stage III 3:00 129 170/68No Chest Pain; Mild Dyspnea Recovery 73 118/70No Chest Pain Stress Duration: 9:00 mm:ss Maximum Stress HR: 129 bpm METS: 10 Baseline Echocardiogram Findings Stress Echo Wall motion Data Resting WM Intermediate WM Stress WM Doppler Measurements & Calculations TR max damián: 279.0 cm/sec TR max P.1 mmHg ECHO/Stress Test Echo W/Contrast Interpretation Summary Exercise stress echo. 84-year-old male with a history of low heart rate. Resting EKG demonstrates sinus bradycardia with a rate of 48 bpm right bundle b ranch block pattern is noted resting blood pressure is 124/70 mmHg. The patient exercised according to the regular B ruce protocol for total duration of 9 minutes the maximum heart rate attained was 129 bpm which was 93% of maximum pr edicted heart rate the maximum workload was 10.1 metabolic equivalents. At rest there were no ST or T wave changes note d suggest ischemia and at peak exercise upsloping ST changes only were noted we did not meet the criteria for ischemia. No clinical angina was noted the test was terminated due to the target heart rate being achieved. The peak blood pres sure was 170/68, with a rate-pressure product of 21,900. Stress echocardiogram. The resting echocardiogram demonstrated an ejection frac tion of 60%. No wall motion abnormalities were noted. Mild tricuspid regurgitation was present. Mild focal aortic calcifi cation was present. With exercise there was thickening of all jean reduction of the ventricular cavity size peaking of ejection fraction approximately 70%. No wall motion abnormalities were noted to suggest ischemia. Conclusion: Normal exercise stress echo with no EKG criteria for ischemia at a high workloa d. No evidence of chronotropic incompetence. Preserved ejection fraction at rest and with exercise. Mild focal aortic sclerosis present. Resting blood pressures at home do not demonstrate any evidence of hypertension present. Ordering Physician: Andrés Izaguirre Referring Physician: Andrés Izaguirre Performed By: Blanco Marquez, LUIS
[2025-01-05 10:59] LABS: AST(SGOT) 32 U/L (<=37); Alanine Aminotransfer ALT/SGPT 23 U/L (<=46); Albumin, Serum 3.9 g/dL (3.4-4.8); Alkaline Phosphatase 65 U/L (40-129); Bilirubin, Direct 0.20 mg/dL (0.00-0.30); Cholesterol 191 mg/dL (<=200); Globulin 2.7 g/dL (2.2-4.2); Low Density Lipoprotein Calc. 107 mg/dL; Triglycerides 93 mg/dL; Very Low Density Lipoprotein 19 mg/dL (5-40); cholesterol:hdl ratio screen 2.90
== END | disposition home or self-care (01) ==
PROVIDERS: PCP Family Medicine; Referring Provider Internal Medicine Cardiovascular Disease; Visit Provider Internal Medicine Cardiovascular Disease
DX: R94.31 Abnormal electrocardiogram [ECG] [EKG] (principal); E78.5 Hyperlipidemia, unspecified; I49.9 Cardiac arrhythmia, unspecified; I10 Essential (primary) hypertension
CPT/HCPCS: 36415; 80061; 80076; 84443; 93017; 93350; C8928